=== PATIENT | female | born 2005 | race Caucasian/White ===

== ENCOUNTER 2023-05-01 10:52 | Emergency (ER) | payer OTHER ==
[2023-05-01 11:03] VITALS: RESP 18
[2023-05-01] MEDS ORDERED: SODIUM CHLORIDE 0.9% 1,000 ML IV ONE ×2 (11:22→13:48)
--- NOTE | 2023-05-01 11:26 | ED ---
General Adult HPI - General Chief complaint: Dizziness Stated complaint: dizziness, sob Time Seen by Provider: 05/01/23 11:09 Source: patient, RN notes reviewed Mode of arrival: wheelchair Limitations: no limitations - History of Present Illness Initial comments: 17-year-old female who is approximately 19 weeks with her first presents the emergency department with a chief complaint of dizziness. Patient reports dizziness that started approximately 1 hour and 15 minutes prior to arrival. She reports that she was standing at work just suddenly felt like she was spinning. She also feels like she is near-syncope however denies any episodes of passing out. She reports that this has happened to her before and she felt and her symptoms all resolved. She attempted to eat fall and elevate her leg however she would not receive any symptomatic relief. She not take anything for his symptoms. She does report that she ate earlier today. She is complaining of accompanying symptoms of feeling like she cannot take a deep breath. Denies any fever, chills, palpitations, chest pain, nausea, vomiting, vaginal bleeding, vaginal cramping, low back pain. - Related Data Home Medications Medication Instructions Recorded Confirmed [id number] Acid 1 cap PO DAILY 05/01/23 05/01/23 [-U Capsule (formulary)] Allergies Allergy/AdvReac Type Severity Reaction Status Date / Time No Known Allergies Allergy Verified 05/01/23 13:23 Review of Systems ROS Statement: Those systems with pertinent positive or pertinent negative responses have been documented in the HPI. ROS Other: All systems not noted in ROS Statement are negative. Past Medical History Past Medical History: No Reported History Additional Past Medical History / Comment(s): Chronic ear infections, hypotension, Past Surgical History: Adenoidectomy, Tonsillectomy Past Psychological History: Anxiety, Depression Smoking Status: Never smoker Past Alcohol Use History: None Reported Past Drug Use History: None Reported General Exam - General Exam Comments Initial Comments: General: Alert, in no acute distress Head: atraumatic normocephalic. Eyes PERRL, EOMI intact, mucous membranes moist Respiratory: Lungs clear to auscultation bilaterally Cardiovascular: Heart rate regular rate and rhythm Abdominal: Soft without guarding or rebound, gravid Extremities: Normal inspection with full range of motion and normal capillary refill Neuroogic: alert and oriented 3, CN II-XII intact, able to ambulate with steady gait Skin: warm dry and intact with normal color Limitations: no limitations Course Vital Signs 05/01/23 05/01/23 05/01/23 10:58 12:39 13:00 Temperature 97.9 F 97.2 F L Pulse Rate 72 59 L Pulse Rate [ 95 Sitting Dry Cleaning Manager] Pulse Rate [ 100 Standing Dry Cleaning Manager ] Pulse Rate [ 60 Supine Dry Cleaning Manager] Respiratory 18 18 18 Rate Blood Pressure 126/87 120/78 Blood Pressure 110/68 [Right Arm Sitting] Blood Pressure 114/63 [Right Arm Supine] Blood Pressure 117/89 [Standing] O2 Sat by Pulse 99 98 98 Oximetry 05/01/23 16:20 Temperature 98.3 F Pulse Rate 73 Pulse Rate [ Sitting Dry Cleaning Manager] Pulse Rate [ Standing Dry Cleaning Manager ] Pulse Rate [ Supine Dry Cleaning Manager] Respiratory 18 Rate Blood Pressure 103/63 Blood Pressure [Right Arm Sitting] Blood Pressure [Right Arm Supine] Blood Pressure [Standing] O2 Sat by Pulse 98 Oximetry - Reevaluation(s) Reevaluation #1: 05/01/23 14:04 Patient reevaluated and updated on initial results. Patient still reports feeling dizzy. Additional medications ordered. EKG Findings - EKG Comments: EKG Findings:: I interpreted the following: EKG performed at 11:19 72 bpm normal sinus rhythm MI interval 147, QRS duration 90, QT/QTc 357/381 Medical Decision Making - Medical Decision Making Was pt. sent in by a medical professional or institution (Dr. PA, ROLLER REPAIRER, urgent care, hospital, or jail...) When possible be specific @ -[No] Did you speak to anyone other than the patient for history (EMS, parent, family, police, friend...)? What history was obtained from this source @ -[No] Did you review nursing and triage notes (agree or disagree)? Why? @ -[I reviewed and agree with nursing and triage notes] Were old charts reviewed (outside hosp., previous admission, EMS record, old EKG, old radiological studies, urgent care reports/EKG's, jail records)? Report findings @ -[No old charts were reviewed] Differential Diagnosis (chest pain, altered mental status, abdominal pain women, abdominal pain men, vaginal bleeding, weakness, fever, dyspnea, syncope, headache, dizziness, GI bleed, back pain, seizure, CVA, palpatations, mental health, musculoskeletal)? @ -[not applicable] EKG interpreted by me (3pts min.). @ -[As above] X-rays interpreted by me (1pt min.). @ -Chest x-ray negative for any cardiomegaly intrapleural process CT interpreted by me (1pt min.). @ -[None done] U/S interpreted by me (1pt. min.). @ -[None done] What testing was considered but not performed or refused? (CT, X-rays, U/S, labs)? Why? @ -[None] What meds were considered but not given or refused? Why? @ -[None] Did you discuss the management of the patient with other professionals (professionals i.e. , PA, ROLLER REPAIRER, lab, RT, psych nurse, social service coordinator, webbing seamer pound net, teacher, fire officer, case consultant)? Give summary @ -[No] Was smoking cessation discussed for >3mins.? @ -[No] Was critical care preformed (if so, how long)? @ -[No] Were there social determinants of health that impacted care today? How? (Home lessness, low income, unemployed, alcoholism, drug addiction, transportation, low edu. Level, literacy, decrease access to med. care, shelter, rehab)? @ -[No] Was there de-escalation of care discussed even if they declined (Discuss DNR or withdrawal of care, Hospice)? DNR status @ -[No] What co-morbidities impacted this encounter? (DM, HTN, Smoking, COPD, CAD, Cancer, CVA, ARF, Chemo, Hep., AIDS, mental health diagnosis, sleep apnea, morbid obesity)? @ -[None] Was patient admitted / discharged? Hospital course, mention meds given and route, prescriptions, significant lab abnormalities, going to OR and other pertinent info. @ Discharged. This is a pleasant 17-year-old female who presents to the emergency department with dizziness. Patient had a thorough history and physical exam performed on the emergency department. Physical exam is essentially unremarkable. Heart rate regular rate and rhythm, lungs are to auscultation bilaterally, abdomen soft nontender. patient able to ambulate . Patient was given 2 L IV fluids, Antivert mild symptomatically relief on the emergency department. Recommend close follow-up with PCP in 1-2 days. Patient will be discharged home in stable condition. Return precautions were discussed at length patient verbalized understanding. All questions were addressed. Case discussed with Dr. Swenson who agrees with plan of care Undiagnosed new problem with uncertain prognosis? @ -[No] Drug Therapy requiring intensive monitoring for toxicity (Heparin, Nitro, Insulin, Cardizem)? @ -[No] Were any procedures done? @ -[No] Diagnosis/symptom? @ - Dizziness Acute, or Chronic, or Acute on Chronic? @ -Acute Uncomplicated (without systemic symptoms) or Complicated (systemic symptoms)? @ -Uncomplicated Side effects of treatment? @ -[No] Exacerbation, Progression, or Severe Exacerbation? @ -[No] Poses a threat to life or bodily function? How? (Chest pain, [place], HI, pneumonia, PE, COPD, DKA, ARF, appy, cholecystitis, CVA, Diverticulitis, Homicidal, Suicidal, threat to staff... and all critical care pts) @ -Low likelihood - Lab Data Result diagrams: 05/01/23 11:32 05/01/23 11:32 Lab Results 05/01/23 05/01/23 05/01/23 Range/Units 11:32 11:32 11:41 WBC 8.6 (4.0-11.0) k/uL RBC 4.03 (3.80-5.40) m/uL Hgb 12.1 (11.4-16.0) gm/dL Hct 34.4 (34.0-46.0) % MCV 85.4 (80.0-100.0) fL MCH 30.0 (25.0-35.0) pg MCHC 35.1 (31.0-37.0) g/dL RDW 14.1 (11.5-15.5) % Plt Count 196 (150-450) k/uL MPV 8.1 Neutrophils % 72 % Lymphocytes % 15 % Monocytes % 9 % Eosinophils % 1 % Basophils % 0 % Neutrophils # 6.2 (1.3-7.7) k/uL Lymphocytes # 1.3 (1.0-4.8) k/uL Monocytes # 0.8 (0-1.0) k/uL Eosinophils # 0.1 (0-0.7) k/uL Basophils # 0.0 (0-0.2) k/uL Sodium 135 L (137-145) mmol/L Potassium 3.9 (3.5-5.1) mmol/L Chloride 107 (98-107) mmol/L Carbon Dioxide 22 (22-30) mmol/L Anion Gap 6 mmol/L BUN 8 (7-17) mg/dL Creatinine 0.53 (0.52-1.04) mg/dL Est GFR (CKD-EPI)AfAm >90 (>60 ml/min/1.73 sqM) Est GFR (CKD-EPI)NonAf >90 (>60 ml/min/1.73 sqM) Glucose 74 (74-99) mg/dL Calcium 8.8 (8.4-10.2) mg/dL Total Bilirubin 0.3 (0.2-1.3) mg/dL AST 25 (14-36) U/L ALT 22 (4-34) U/L Alkaline Phosphatase 53 (38-126) U/L Troponin I <0.012 (0.000-0.034) ng/mL Total Protein 6.3 (6.3-8.2) g/dL Albumin 3.6 (3.5-5.0) g/dL Urine Color Urine Appearance (Clear) Urine pH (5.0-8.0) Ur Specific Sagle (1.001-1.035) Urine Protein (Negative) Urine Glucose (UA) (Negative) Urine Ketones (Negative) Urine Blood (Negative) Urine Nitrite (Negative) Urine Bilirubin (Negative) Urine Urobilinogen (<2.0) mg/dL Ur Leukocyte Esterase (Negative) Urine WBC (0-5) /hpf Ur Squamous Epith Cells (0-4) /hpf Urine Bacteria (None) /hpf Urine Mucus (None) /hpf Influenza Type A (PCR) (Not Detectd) Influenza Type B (PCR) (Not Detectd) RSV (PCR) (Not Detectd) SARS-CoV-2 (PCR) (Not Detectd) 05/01/23 05/01/23 Range/Units 12:31 13:40 WBC (4.0-11.0) k/uL RBC (3.80-5.40) m/uL Hgb (11.4-16.0) gm/dL Hct (34.0-46.0) % MCV (80.0-100.0) fL MCH (25.0-35.0) pg MCHC (31.0-37.0) g/dL RDW (11.5-15.5) % Plt Count (150-450) k/uL MPV Neutrophils % % Lymphocytes % % Monocytes % % Eosinophils % % Basophils % % Neutrophils # (1.3-7.7) k/uL Lymphocytes # (1.0-4.8) k/uL Monocytes # (0-1.0) k/uL Eosinophils # (0-0.7) k/uL Basophils # (0-0.2) k/uL Sodium (137-145) mmol/L Potassium (3.5-5.1) mmol/L Chloride (98-107) mmol/L Carbon Dioxide (22-30) mmol/L Anion Gap mmol/L BUN (7-17) mg/dL Creatinine (0.52-1.04) mg/dL Est GFR (CKD-EPI)AfAm (>60 ml/min/1.73 sqM) Est GFR (CKD-EPI)NonAf (>60 ml/min/1.73 sqM) Glucose (74-99) mg/dL Calcium (8.4-10.2) mg/dL Total Bilirubin (0.2-1.3) mg/dL AST (14-36) U/L ALT (4-34) U/L Alkaline Phosphatase (38-126) U/L Troponin I (0.000-0.034) ng/mL Total Protein (6.3-8.2) g/dL Albumin (3.5-5.0) g/dL Urine Color Light Yellow Urine Appearance Clear (Clear) Urine pH 6.0 (5.0-8.0) Ur Specific Sagle 1.006 (1.001-1.035) Urine Protein Negative (Negative) Urine Glucose (UA) Negative (Negative) Urine Ketones Negative (Negative) Urine Blood Negative (Negative) Urine Nitrite Negative (Negative) Urine Bilirubin Negative (Negative) Urine Urobilinogen <2.0 (<2.0) mg/dL Ur Leukocyte Esterase Moderate H (Negative) Urine WBC 1 (0-5) /hpf Ur Squamous Epith Cells 2 (0-4) /hpf Urine Bacteria Rare H (None) /hpf Urine Mucus Rare H (None) /hpf Influenza Type A (PCR) Not Detected (Not Detectd) Influenza Type B (PCR) Not Detected (Not Detectd) RSV (PCR) Not Detected (Not Detectd) SARS-CoV-2 (PCR) Not Detected (Not Detectd) Disposition Clinical Impression: Dizziness Disposition: HOME SELF-CARE Condition: Stable Instructions (If sedation given, give patient instructions): Dizziness (ED) Additional Instructions: Please return to the nearest emergency department if symptoms worsen or persist Is patient prescribed a controlled substance at d/c from ED?: No Referrals: Dmitri Verma DO [Primary Care Provider] - 1-2 days Raad Salinas MD [STAFF PHYSICIAN] - 1-2 days Walter Culp MD [STAFF PHYSICIAN] - 1-2 days Forms: Work/School Release Time of Disposition: 16:06
[2023-05-01 11:45] LABS: Basophils % (A) 0 %; Eosinophils # (A) 0.1 k/uL (0-0.7); Eosinophils % (A) 1 %; HCT 34.4 % (34.0-46.0); HGB 12.1 gm/dL (11.4-16.0); Lymphocytes # (A) 1.3 k/uL (1.0-4.8); Lymphocytes % (A) 15 %; MCHC 35.1 g/dL (31.0-37.0); MCV 85.4 fL (80.0-100.0); Mean Platelet Volume 8.1; Monocytes # (A) 0.8 k/uL (0-1.0); Monocytes % (A) 9 %; Neutrophils # (A) 6.2 k/uL (1.3-7.7); Neutrophils % (A) 72 %; Platelet Count 196 k/uL (150-450); RBC 4.03 m/uL (3.80-5.40); RDW 14.1 % (11.5-15.5); WBC 8.6 k/uL (4.0-11.0)
[2023-05-01 12:04] LABS: ALT 22 U/L (4-34); AST 25 U/L (14-36); African American GFR (CKD) >90 (>60 ml/min/1.73 sqM); Albumin 3.6 g/dL (3.5-5.0); Alkaline Phosphatase 53 U/L (38-126); Anion Gap 6 mmol/L; Blood Urea Nitrogen 8 mg/dL (7-17); Calcium 8.8 mg/dL (8.4-10.2); Carbon Dioxide 22 mmol/L (22-30); Chloride 107 mmol/L (98-107); Glucose 74 mg/dL (74-99); Non-African American GFR(CKD) >90 (>60 ml/min/1.73 sqM); Potassium 3.9 mmol/L (3.5-5.1); Sodium 135 mmol/L (137-145); Total Bilirubin 0.3 mg/dL (0.2-1.3); Total Protein 6.3 g/dL (6.3-8.2)
[2023-05-01 12:48] LABS: Appearance,Urine Clear (Clear); Bacteria,Urine Rare /hpf; Bilirubin,Urine Negative (Negative); Blood,Urine Negative (Negative); Color,Urine Light Yellow; Glucose,Urine (UA) Negative (Negative); Ketones,Urine Negative (Negative); Leukocyte Esterase,Urine Moderate (Negative); Mucus,Urine Rare /hpf; Nitrite,Urine Negative (Negative); Protein,Urine Negative (Negative); Specific Gravity,Urine 1.006 (1.001-1.035); Squamous Epithelial Cell,Urine 2 /hpf (0-4); Urobilinogen,Urine <2.0 mg/dL (<2.0); WBC,Urine 1 /hpf (0-5)
--- NOTE | 2023-05-01 13:10 | US ---
EXAMINATION TYPE: US venous doppler duplex LE BI DATE OF EXAM: 05/01/2023 12:37 PM COMPARISON: NONE CLINICAL INDICATION: Female, 17 years old with history of R/out DVT; Dizziness, SOB, patient 20 weeks SIDE PERFORMED: bilateral TECHNIQUE: The lower extremity deep venous system is examined utilizing real time linear array sonog silvano with graded compression, doppler sonography and color-flow sonography. VESSELS IMAGED: Common Femoral Vein Deep Femoral Vein Greater Saphenous Vein * Femoral Vein Popliteal Vein Small Saphenous Vein * Proximal Calf Veins (* superficial vessels) Right Leg: No evidence of DVT Left Leg: No evidence of DVT IMPRESSION: Grayscale, color doppler, spectral doppler imaging performed of the deep veins of the lo wer extremities. There is normal flow, compressibility, vascular waveforms.
--- NOTE | 2023-05-01 13:13 | XR ---
EXAMINATION TYPE: XR chest 2V DATE OF EXAM: 05/01/2023 COMPARISON: 06/01/2011 TECHNIQUE: PA and lateral views submitted. HISTORY: Shortness of breath FINDINGS: The lungs are clear and there is no pneumothorax, pleural effusion, or focal pneumonia. Heart size normal and no overt failure. Osseous structures demonstrate hypertrophic and degenerative changes of the spine. IMPRESSION: 1. No acute process.
[2023-05-01] MEDS ORDERED: MECLIZINE 12.5 MG TAB PO STA (13:50)
[2023-05-01 16:25] VITALS: BP 103/63; PULSE 73; TEMP 98.3
== END 2023-05-01 16:25 | disposition home or self-care (01) ==
LOC: EC 10:52
DX: O26.892 Other specified pregnancy related conditions, second trimester (principal); O9A.512 Psychological abuse complicating pregnancy, second trimester; R42 Dizziness and giddiness; F41.9 Anxiety disorder, unspecified; F32.A Depression, unspecified; Z20.822 Contact with and (suspected) exposure to COVID-19; Z3A.19 19 weeks gestation of pregnancy
CPT/HCPCS: 36415; 71046; 80053; 81001; 84484; 85025; 87636; 93005; 93970; 96360; 96361; 99285

== ENCOUNTER 2023-08-21 09:42 | Outpatient (CLI) | payer OTHER ==
[2023-08-21 11:07] VITALS: BP 107/61; PULSE 93; RESP 17; TEMP 97.8
== END 2023-08-21 10:47 | disposition home or self-care (01) ==
LOC: FBPOP 09:42
PROVIDERS: ATTEND Obstetrics & Gynecology
DX: Z53.9 Procedure and treatment not carried out, unspecified reason (principal)
CPT/HCPCS: 59025; 99213

== ENCOUNTER 2023-08-24 06:22 | Emergency (ER) | payer OTHER ==
--- NOTE | 2023-08-24 06:31 | ED ---
General Adult HPI - General Chief complaint: Chest Pain Stated complaint: Chest pain Time Seen by Provider: 08/24/23 06:29 Source: patient, RN notes reviewed Mode of arrival: wheelchair Limitations: no limitations - History of Present Illness Initial comments: 18 year-old female presents approximately 36 weeks presents the emergency department with a chief complaint of acute onset chest pain. She reports chest pain that is in her center of her chest/epigastric area that awoke her from sleep approximately 1 hour ago. She is complaining of accompanying shortness of breath. Denies fever, chills,, congestion, palpitations, nausea, vomiting, abdominal pain. Denies any vaginal bleeding, vaginal cramping, low back pain. She reports movement. - Related Data Home Medications Medication Instructions Recorded Confirmed Lte-Jfzm-Ayqpu Acid 1 cap PO DAILY 05/01/23 08/21/23 [-U Capsule (formulary)] Acetaminophen Tab [Tylenol] 2 tablet PO PRN 08/21/23 diphenhydrAMINE HCL [Benadryl 25 mg PO PRN 08/21/23 Allergy] Previous Rx's Medication Instructions Recorded Cephalexin [Keflex] 500 mg PO BID #14 cap 08/24/23 Famotidine [Pepcid] 20 mg PO BID #28 tablet 08/24/23 Allergies Allergy/AdvReac Type Severity Reaction Status Date / Time pseudoephedrine Allergy Rapid Verified 08/24/23 06:25 Heart Rate Review of Systems ROS Statement: Those systems with pertinent positive or pertinent negative responses have been documented in the HPI. ROS Other: All systems not noted in ROS Statement are negative. Past Medical History Past Medical History: No Reported History Additional Past Medical History / Comment(s): Chronic ear infections, hypotension, History of Any Multi-Drug Resistant Organisms: None Reported Past Surgical History: Adenoidectomy, Tonsillectomy Past Psychological History: Anxiety, Depression Smoking Status: Never smoker Past Alcohol Use History: None Reported Past Drug Use History: None Reported General Exam - General Exam Comments Initial Comments: Visual Physical Exam Vital signs reviewed General: Well-appearing, nontoxic, no acute distress. Head: Normocephalic, atraumatic Eyes: PERRLA, EOMI ENT: Airway patent Chest: Nonlabored breathing Skin: No visual rash, normal skin tone Neuro: Alert and oriented 3 Musculoskeletal: No gross abnormalities Limitations: no limitations Course Vital Signs 08/24/23 08/24/23 08/24/23 06:25 07:28 07:30 Temperature 98.2 F 98.1 F Pulse Rate 105 H 80 Pulse Rate [ 85 Rn Physician Office ] Respiratory 18 18 18 Rate Blood Pressure 123/82 106/73 O2 Sat by Pulse 96 98 Oximetry 08/24/23 08/24/23 08/24/23 08:00 09:00 09:47 Temperature Pulse Rate 93 87 65 Pulse Rate [ Rn Physician Office ] Respiratory 18 18 18 Rate Blood Pressure 112/77 103/69 110/70 O2 Sat by Pulse 98 Oximetry 08/24/23 08/24/23 10:47 11:36 Temperature Pulse Rate 71 83 Pulse Rate [ Rn Physician Office ] Respiratory 18 18 Rate Blood Pressure 106/69 123/69 O2 Sat by Pulse 98 Oximetry - Reevaluation(s) Reevaluation #1: 08/24/23 08:19 Patient's heart tones 140s Reevaluation #2: 08/24/23 08:29 He shouldn't still complaining of chest pressure. Agreeable with the plan for CAT scan. Risks and benefits were discussed at length. Patient verbalized understanding all questions were addressed. Patient agreeable to getting a CAT scan to rule out PE. Reevaluation #3: 08/24/23 10:[address] results. Patient still complaining of chest tightness. Tylenol ordered. EKG Findings - EKG Comments: EKG Findings:: I interpreted the following: EKG performed at 06:35. Rate 82 bpm normal sinus rhythm. [place] interval 131, QRS duration 85, QT/QTc 355/374 Medical Decision Making - Medical Decision Making Was pt. sent in by a medical professional or institution (, PA, BINDER CASER, urgent care, hospital, or alf...) When possible be specific @ -[No] Did you speak to anyone other than the patient for history (EMS, parent, family, police, friend...)? What history was obtained from this source @ -[No] Did you review nursing and triage notes (agree or disagree)? Why? @ -[I reviewed and agree with nursing and triage notes] Were old charts reviewed (outside hosp., previous admission, EMS record, old EKG, old radiological studies, urgent care reports/EKG's, alf records)? Report findings @ -[No old charts were reviewed] Differential Diagnosis (chest pain, altered mental status, abdominal pain women, abdominal pain men, vaginal bleeding, weakness, fever, dyspnea, syncope, headache, dizziness, GI bleed, back pain, seizure, CVA, palpatations, mental health, musculoskeletal)? @ -[not applicable] EKG interpreted by me (3pts min.). @ -[As above] X-rays interpreted by me (1pt min.). @ yes CT interpreted by me (1pt min.). @ -Yes U/S interpreted by me (1pt. min.). @ -[None done] What testing was considered but not performed or refused? (CT, X-rays, U/S, labs)? Why? @ -[None] What meds were considered but not given or refused? Why? @ -[None] Did you discuss the management of the patient with other professionals (pr ofessionals i.e. , PA, BINDER CASER, lab, RT, psych nurse, social security specialist, dining room host, teacher, credit review officer, rehabilitation case coordinator)? Give summary @ -[No] Was smoking cessation discussed for >3mins.? @ -[No] Was critical care preformed (if so, how long)? @ -[No] Were there social determinants of health that impacted care today? How? (Homelessness, low income, unemployed, alcoholism, drug addiction, tra nsportation, low edu. Level, literacy, decrease access to med. care, usp, rehab)? @ -[No] Was there de-escalation of care discussed even if they declined (Discuss DNR or withdrawal of care, Hospice)? DNR status @ -[No] What co-morbidities impacted this encounter? (DM, HTN, Smoking, COPD, CAD, Cancer, CVA, ARF, Chemo, Hep., AIDS, mental health diagnosis, sleep apnea, morbid obesity)? @ -[None] Was patient admitted / discharged? Hospital course, mention meds given and route, prescriptions, significant lab abnormalities, going to OR and other pertinent info. @ -Discharged. This is a 18-year-old female who presents the emergency department with chest pain. Patient had a history and physical exam performed. Abdomen is gravid. Heart rate regular rate and rhythm, lungs clear to auscultation. Patient had laboratory studies including 2 serial negative troponins. Patient's dimer onto the elevated at 1.6. CTA ordered. Risks and benefits were di scussed at length. Patient verbalized understanding. Chest CT is negative for any evidence of PE. She'll be discharged home in stable condition. Return precautions discussed at length. Case discussed with Dr. Parker [facility] who agrees with plan of care. Undiagnosed new problem with uncertain prognosis? @ -[No] Drug Therapy requiring intensive monitoring for toxicity (Heparin, Nitro, Insulin, Cardizem)? @ -[No] Were any procedures done? @ -[No] Diagnosis/symptom? @ -Chest Pain Acute, or Chronic, or Acute on Chronic? @ -Acute Uncomplicated (without systemic symptoms) or Complicated (systemic symptoms)? @ -Uncomplicated Side effects of treatment? @ -[No] Exacerbation, Progression, or Severe Exacerbation? @ -[No] Poses a threat to life or bodily function? How? (Chest pain, [place], NH, pneumonia, PE, COPD, DKA, ARF, appy, cholecystitis, CVA, Diverticulitis, Homicidal, Suicidal, threat to staff... and all critical care pts) @ -Low likelihood - Lab Data Result diagrams: 08/24/23 06:35 08/24/23 06:35 Lab Results 08/24/23 08/24/23 08/24/23 Range/Units 06:35 06:35 06:35 WBC 10.4 (4.0-11.0) k/uL RBC 4.01 (3.80-5.40) m/uL Hgb 9.5 L (11.4-16.0) gm/dL Hct 29.4 L (34.0-46.0) % MCV 73.4 L (80.0-100.0) fL MCH 23.8 L (25.0-35.0) pg MCHC 32.4 (31.0-37.0) g/dL RDW 14.9 (11.5-15.5) % Plt Count 211 (150-450) k/uL MPV 8.8 Neutrophils % (Manual) 83 % Lymphocytes % (Manual) 13 % Monocytes % (Manual) 3 % Eosinophils % (Manual) 1 % Neutrophils # (Manual) 8.63 H (1.3-7.7) k/uL Lymphocytes # (Manual) 1.35 (1.0-4.8) k/uL Monocytes # (Manual) 0.31 (0-1.0) k/uL Eosinophils # (Manual) 0.10 (0-0.7) k/uL Nucleated RBCs 0 (0-0) /100 WBC Manual Slide Review Performed Large Platelets Present Polychromasia Present Hypochromasia Marked Poikilocytosis Moderate Microcytosis Slight PT 9.5 L (10.0-12.5) sec INR 0.8 (<1.2) APTT 22.1 (22.0-30.0) sec D-Dimer (<0.60) mg/L FEU Sodium 134 L (137-145) mmol/L Potassium 4.1 (3.5-5.1) mmol/L Chloride 105 (98-107) mmol/L Carbon Dioxide 18 L (22-30) mmol/L Anion Gap 11 mmol/L BUN 7 (7-17) mg/dL Creatinine 0.50 L (0.52-1.04) mg/dL Est GFR (CKD-EPI)AfAm >90 (>60 ml/min/1.73 sqM) Est GFR (CKD-EPI)NonAf >90 (>60 ml/min/1.73 sqM) Glucose 90 (74-99) mg/dL Calcium 9.2 (8.4-10.2) mg/dL Total Bilirubin 0.4 (0.2-1.3) mg/dL AST 28 (14-36) U/L ALT 24 (4-34) U/L Alkaline Phosphatase 130 H (38-126) U/L Troponin I (0.000-0.034) ng/mL Total Protein 6.2 L (6.3-8.2) g/dL Albumin 3.4 L (3.5-5.0) g/dL Urine Color Urine Appearance (Clear) Urine pH (5.0-8.0) Ur Specific [place] (1.001-1.035) Urine Protein (Negative) Urine Glucose (UA) (Negative) Urine Ketones (Negative) Urine Blood (Negative) Urine Nitrite (Negative) Urine Bilirubin (Negative) Urine Urobilinogen (<2.0) mg/dL Ur Leukocyte Esterase (Negative) Urine RBC (0-5) /hpf Urine WBC (0-5) /hpf Ur Squamous Epith Cells (0-4) /hpf Urine Bacteria (None) /hpf Urine Mucus (None) /hpf Influenza Type A (PCR) (Not Detectd) Influenza Type B (PCR) (Not Detectd) RSV (PCR) (Not Detectd) SARS-CoV-2 (PCR) (Not Detectd) 08/24/23 08/24/23 08/24/23 Range/Units 06:35 06:35 08:14 WBC (4.0-11.0) k/uL RBC (3.80-5.40) m/uL Hgb (11.4-16.0) gm/dL Hct (34.0-46.0) % MCV (80.0-100.0) fL MCH (25.0-35.0) pg MCHC (31.0-37.0) g/dL RDW (11.5-15.5) % Plt Count (150-450) k/uL MPV Neutrophils % (Manual) % Lymphocytes % (Manual) % Monocytes % (Manual) % Eosinophils % (Manual) % Neutrophils # (Manual) (1.3-7.7) k/uL Lymphocytes # (Manual) (1.0-4.8) k/uL Monocytes # (Manual) (0-1.0) k/uL Eosinophils # (Manual) (0-0.7) k/uL Nucleated RBCs (0-0) /100 WBC Manual Slide Review Large Platelets Polychromasia Hypochromasia Poikilocytosis Microcytosis PT (10.0-12.5) sec INR (<1.2) APTT (22.0-30.0) sec D-Dimer 1.84 H (<0.60) mg/L FEU Sodium (137-145) mmol/L Potassium (3.5-5.1) mmol/L Chloride (98-107) mmol/L Carbon Dioxide (22-30) mmol/L Anion Gap mmol/L BUN (7-17) mg/dL Creatinine (0.52-1.04) mg/dL Est GFR (CKD-EPI)AfAm (>60 ml/min/1.73 sqM) Est GFR (CKD-EPI)NonAf (>60 ml/min/1.73 sqM) Glucose (74-99) mg/dL Calcium (8.4-10.2) mg/dL Total Bilirubin (0.2-1.3) mg/dL AST (14-36) U/L ALT (4-34) U/L Alkaline Phosphatase (38-126) U/L Troponin I <0.012 (0.000-0.034) ng/mL Total Protein (6.3-8.2) g/dL Albumin (3.5-5.0) g/dL Urine Color Yellow Urine Appearance Turbid H (Clear) Urine pH 7.0 (5.0-8.0) Ur Specific [place] 1.022 (1.001-1.035) Urine Protein 1+ H (Negative) Urine Glucose (UA) Negative (Negative) Urine Ketones Negative (Negative) Urine Blood Small H (Negative) Urine Nitrite Negative (Negative) Urine Bilirubin Negative (Negative) Urine Urobilinogen <2.0 (<2.0) mg/dL Ur Leukocyte Esterase Large H (Negative) Urine RBC 17 H (0-5) /hpf Urine WBC 102 H (0-5) /hpf Ur Squamous Epith Cells 19 H (0-4) /hpf Urine Bacteria Few H (None) /hpf Urine Mucus Few H (None) /hpf Influenza Type A (PCR) (Not Detectd) Influenza Type B (PCR) (Not Detectd) RSV (PCR) (Not Detectd) SARS-CoV-2 (PCR) (Not Detectd) 08/24/23 08/24/23 Range/Units 08:14 09:45 WBC (4.0-11.0) k/uL RBC (3.80-5.40) m/uL Hgb (11.4-16.0) gm/dL Hct (34.0-46.0) % MCV (80.0-100.0) fL MCH (25.0-35.0) pg MCHC (31.0-37.0) g/dL RDW (11.5-15.5) % Plt Count (150-450) k/uL MPV Neutrophils % (Manual) % Lymphocytes % (Manual) % Monocytes % (Manual) % Eosinophils % (Manual) % Neutrophils # (Manual) (1.3-7.7) k/uL Lymphocytes # (Manual) (1.0-4.8) k/uL Monocytes # (Manual) (0-1.0) k/uL Eosinophils # (Manual) (0-0.7) k/uL Nucleated RBCs (0-0) /100 WBC Manual Slide Review Large Platelets Polychromasia Hypochromasia Poikilocytosis Microcytosis PT (10.0-12.5) sec INR (<1.2) APTT (22.0-30.0) sec D-Dimer (<0.60) mg/L FEU Sodium (137-145) mmol/L Potassium (3.5-5.1) mmol/L Chloride (98-107) mmol/L Carbon Dioxide (22-30) mmol/L Anion Gap mmol/L BUN (7-17) mg/dL Creatinine (0.52-1.04) mg/dL Est GFR (CKD-EPI)AfAm (>60 ml/min/1.73 sqM) Est GFR (CKD-EPI)NonAf (>60 ml/min/1.73 sqM) Glucose (74-99) mg/dL Calcium (8.4-10.2) mg/dL Total Bilirubin (0.2-1.3) mg/dL AST (14-36) U/L ALT (4-34) U/L Alkaline Phosphatase (38-126) U/L Troponin I <0.012 (0.000-0.034) ng/mL Total Protein (6.3-8.2) g/dL Albumin (3.5-5.0) g/dL Urine Color Urine Appearance (Clear) Urine pH (5.0-8.0) Ur Specific [place] (1.001-1.035) Urine Protein (Negative) Urine Glucose (UA) (Negative) Urine Ketones (Negative) Urine Blood (Negative) Urine Nitrite (Negative) Urine Bilirubin (Negative) Urine Urobilinogen (<2.0) mg/dL Ur Leukocyte Esterase (Negative) Urine RBC (0-5) /hpf Urine WBC (0-5) /hpf Ur Squamous Epith Cells (0-4) /hpf Urine Bacteria (None) /hpf Urine Mucus (None) /hpf Influenza Type A (PCR) Not Detected (Not Detectd) Influenza Type B (PCR) Not Detected (Not Detectd) RSV (PCR) Not Detected (Not Detectd) SARS-CoV-2 (PCR) Not Detected (Not Detectd) Disposition Clinical Impression: Chest pain Disposition: HOME SELF-CARE Condition: Stable Instructions (If sedation given, give patient instructions): Chest Pain (ED) Additional Instructions: Please monitor symptoms closely Please return to the nearest emergency department if worsening chest pain or shortness of breath develop Prescriptions: Cephalexin [Keflex] 500 mg PO BID #14 cap Famotidine [Pepcid] 20 mg PO BID #28 tablet Is patient prescribed a controlled substance at d/c from ED?: No Referrals: Israel Alvarez MD [Primary Care Provider] - 1-2 days Time of Disposition: 10:45
[2023-08-24] MEDS ORDERED: FAMOTIDINE 20 MG/2 ML VIAL IV STA (06:32)
[2023-08-24] MEDS ORDERED: MAG HYDROX/AL HYDROX/SIMETH 30 ML, HYOSCYAMINE ELIXIR 10 ML, LIDOCAINE VISCOUS 2% 10 ML PO STA ×3 (06:32)
[2023-08-24] MEDS ORDERED: SODIUM CHLORIDE 0.9% 1,000 ML IV ONE (06:32)
[2023-08-24 06:35] VITALS: RESP 18
[2023-08-24 07:11] LABS: INR 0.8 (<1.2); Partial Thromboplastin Time 22.1 sec (22.0-30.0); Prothrombin Time 9.5 sec (10.0-12.5)
[2023-08-24 07:17] LABS: ALT 24 U/L (4-34); AST 28 U/L (14-36); African American GFR (CKD) >90 (>60 ml/min/1.73 sqM); Albumin 3.4 g/dL (3.5-5.0); Alkaline Phosphatase 130 U/L (38-126); Anion Gap 11 mmol/L; Blood Urea Nitrogen 7 mg/dL (7-17); Calcium 9.2 mg/dL (8.4-10.2); Carbon Dioxide 18 mmol/L (22-30); Chloride 105 mmol/L (98-107); Glucose 90 mg/dL (74-99); Non-African American GFR(CKD) >90 (>60 ml/min/1.73 sqM); Potassium 4.1 mmol/L (3.5-5.1); Sodium 134 mmol/L (137-145); Total Bilirubin 0.4 mg/dL (0.2-1.3); Total Protein 6.2 g/dL (6.3-8.2)
[2023-08-24 07:29] LABS: HCT 29.4 % (34.0-46.0); HGB 9.5 gm/dL (11.4-16.0); Hypochromasia Marked; MCH 23.8 pg (25.0-35.0); MCHC 32.4 g/dL (31.0-37.0); MCV 73.4 fL (80.0-100.0); Mean Platelet Volume 8.8; Microcytosis Slight; Platelet Count 211 k/uL (150-450); Poikilocytosis Moderate; RBC 4.01 m/uL (3.80-5.40); RDW 14.9 % (11.5-15.5); WBC 10.4 k/uL (4.0-11.0)
[2023-08-24 08:10] LABS: Lymphocytes # (M) 1.35 k/uL (1.0-4.8); Monocytes # (M) 0.31 k/uL (0-1.0); Neutrophils # (M) 8.63 k/uL (1.3-7.7); Neutrophils % (M) 83 %; Nucleated Red Blood Cells 0 /100 WBC (0-0); Total Cells Counted 100
[2023-08-24 08:11] LABS: Polychromasia Present
[2023-08-24 08:13] LABS: Large Platelets Present
[2023-08-24 08:40] VITALS: TEMP 98.1
[2023-08-24 09:04] LABS: Appearance,Urine Turbid (Clear); Bacteria,Urine Few /hpf; Bilirubin,Urine Negative (Negative); Blood,Urine Small (Negative); Color,Urine Yellow; Glucose,Urine (UA) Negative (Negative); Ketones,Urine Negative (Negative); Leukocyte Esterase,Urine Large (Negative); Mucus,Urine Few /hpf; Nitrite,Urine Negative (Negative); Protein,Urine 1+ (Negative); RBC,Urine 17 /hpf (0-5); Specific Gravity,Urine 1.022 (1.001-1.035); Squamous Epithelial Cell,Urine 19 /hpf (0-4); Urobilinogen,Urine <2.0 mg/dL (<2.0); WBC,Urine 102 /hpf (0-5)
--- NOTE | 2023-08-24 09:14 | CT ---
EXAMINATION TYPE: CT chest angio for PE DATE OF EXAM: 08/24/2023 COMPARISON: None HISTORY: + dimer, chest pain CT DLP: 423.4 mGycm CONTRAST: CT chest with contrast and 3D reconstruction with MIP imaging is performed without and with IV Contra st, patient injected with 100 mL of . Contrast-enhanced CT of the chest was performed through the course of the pulmonary arteries with power g and mediastinal window settings submitted. 3D reconstruction with MIP imaging was also performed. PULMONARY ARTERIES: The pulmonary arteries and their major tributaries are patent. I do not see benigno dence for sizable filling defect to suggest pulmonary embolic process. LUNGS: The lungs are clear and free of infiltrate. No evidence for atelectasis. No pulmonary nodule or mass is detected. No pleural effusion. MEDIASTINUM: Thoracic aorta is of normal caliber,however, evaluation is limited given timing of the contrast bolus. If there is concern for thoracic aortic pathology consider ADILIA. Correlate clinicall y . The heart is not enlarged. No evidence for mediastinal mass. No mediastinal lymph nodes greater than 1cm. HILAR STRUCTURES: No evidence for mass. No hilar lymph nodes greater than 1 cm. UPPER ABDOMEN: Partial visualization of the patient's known . IMPRESSION: 1. No evidence for Pulmonary embolism at this time.
[2023-08-24] MEDS ORDERED: ACETAMINOPHEN TAB 325 MG TAB PO STA (10:06)
[2023-08-24] MEDS ORDERED: cefTRIAXone IN SWFI 1,000 MG/10 ML SYRINGE IVP STA (10:06)
[2023-08-24] MEDS ORDERED: CEPHALEXIN 500MG STARTER PACK 4 CAP BTL PO STA (10:44)
[2023-08-24 11:55] VITALS: BP 123/69; PULSE 83
== END 2023-08-24 11:37 | disposition home or self-care (01) ==
LOC: EC 06:22
DX: O26.893 Other specified pregnancy related conditions, third trimester (principal); R07.9 Chest pain, unspecified; Z88.1 Allergy status to other antibiotic agents; Z86.59 Personal history of other mental and behavioral disorders; Z20.822 Contact with and (suspected) exposure to COVID-19; Z3A.36 36 weeks gestation of pregnancy
CPT/HCPCS: 96375 ×2; 96361 ×2; 96374; 99285; 36415; 93005; 85379; 80053; 84484; 85025; 85610; 85730; 81001; 87636; 71275; J0696; J3490; Q9967

== ENCOUNTER 2023-09-18 05:45 | Inpatient (IN) | payer OTHER ==
--- NOTE | 2023-09-17 15:20 | P.HPOB ---
History of Present Illness H&P Date: 09/17/23 Chief Complaint: Induction of labor This is a 18 y.o. female, gravida1, para 0, with an estimated date of confinement of 09/17/2023, estimated gestational age of 40-1/7 weeks, who presents for induction of labor. She is complaining of frequent contractions, pressure. Her has been complicated by frequent dizziness and shortness of breath due to her POTS. labs: GC/Chlamydia/Trich-neg Hemoglobin-12.1 Blood type-B+ Antibody screen-neg Rubella-immune Toxoplasma-neg RPR-NR HIV-NR Hepatitis C-neg Random glucose-80 Hepatitis B surface antigen-neg 1 hr. 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 Review of Systems Constitutional: Denies chills, Denies fever Eyes: denies blurred vision, denies pain Ears, nose, mouth and throat: Denies headache, Denies sore throat Cardiovascular: Reports lightheadedness, Reports rapid heart beat, Reports shortness of breath, Denies chest pain Respiratory: Denies cough Gastrointestinal: Reports abdominal pain (irregular contractions) Genitourinary: Reports pelvic pain, Reports Musculoskeletal: Reports low back pain Integumentary: Denies pruritus, Denies rash Neurological: Reports migraines, Denies numbness, Denies weakness Psychiatric: Reports anxiety, Reports depression Past Medical History Additional Past Medical History / Comment(s): Chronic ear infections, hypotension, POTS History of Any Multi-Drug Resistant Organisms: None Reported Past Surgical History: Adenoidectomy, Tonsillectomy Past Anesthesia/Blood Transfusion Reactions: No Reported Reaction Past Psychological History: Anxiety, Depression Smoking Status: Never smoker Past Alcohol Use History: None Reported Past Drug Use History: None Reported - Past Family History Mother Family Medical History: Hypertension Medications and Allergies Home Medications Medication Instructions Recorded Confirmed Type Cog-Dgxq-Kkdmp Acid 1 cap PO DAILY 05/01/23 08/21/23 History [-U Capsule (formulary)] Acetaminophen Tab [Tylenol] 2 tablet PO PRN 08/21/23 History diphenhydrAMINE HCL [Benadryl 25 mg PO PRN 08/21/23 History Allergy] Famotidine [Pepcid] 20 mg PO BID #28 tablet 08/24/23 Rx Allergies Allergy/AdvReac Type Severity Reaction Status Date / Time pseudoephedrine Allergy Rapid Verified 08/24/23 06:25 Heart Rate Exam Osteopathic Statement: *. No significant issues noted on an osteopathic structural exam other than those noted in the History and Physical/Consult. HEENT: within normal limits Heart: regular rate and rhythm Lungs: clear to auscultation bilaterally Abdomen: , non-tender Cervix: 1 cm/80%/-2 heart tones: 140's by doppler Extremities: neg. Arabella's Assessment and Plan (1) 40 weeks gestation of Status: Acute Code(s): Z3A.40 - 40 WEEKS GESTATION OF SNOMED Code(s): 35776344 Plan: Proceed with oxytocin induction of labor. Expectant management. Epidural anesthesia if desired.
[2023-09-18] MEDS ORDERED: METHYLERGONOVINE 0.2 MG/ML 1 ML AMP IM PRN (06:13)
[2023-09-18] MEDS ORDERED: OXYTOCIN 10 UNIT/ML 1 ML VIAL IM PRN (06:13)
[2023-09-18] MEDS ORDERED: TRANEXAMIC 1,000 MG/100ML-NACL 1,000 MG in EMPTY BAG 1 BAG IV PRN (06:13)
[2023-09-18] MEDS ORDERED: LIDOCAINE 0.5% (PF) 5 MG/ML (50 ML SDV) SQ PRN (06:13)
[2023-09-18] MEDS ORDERED: miSOPROStoL 200 MCG TAB PO PRN (06:13)
[2023-09-18] MEDS ORDERED: CARBOPROST TROMETHAMINE 250 MCG/ML 1 ML AMP IM PRN (06:13)
[2023-09-18] MEDS ORDERED: LIDOCAINE 1% (10MG/ML) FOR IV START INTRADERMA PRN (06:13)
[2023-09-18] MEDS ORDERED: TERBUTALINE 1 MG/ML VIAL SQ PRN (06:13)
[2023-09-18] MEDS ORDERED: OXYTOCIN 30 UNITS/500 ML NS 30 UNIT in SALINE 1 500ML.BAG IV SCH (06:13)
[2023-09-18] MEDS: LACTATED RINGERS 1,000 ML IV SCH ×2 (06:29→10:46)
[2023-09-18 06:31] LABS: Anisocytosis Slight; HCT 28.7 % (34.0-46.0); HGB 9.3 gm/dL (11.4-16.0); Hypochromasia Marked; MCH 22.6 pg (25.0-35.0); MCHC 32.3 g/dL (31.0-37.0); MCV 70.1 fL (80.0-100.0); Mean Platelet Volume 7.4; Microcytosis Marked; Platelet Count 238 k/uL (150-450); Poikilocytosis Slight; RDW 16.5 % (11.5-15.5); WBC 9.2 k/uL (4.0-11.0)
[2023-09-18 08:57] LABS: Eosinophils # (M) 0.09 k/uL (0-0.7); Lymphocytes # (M) 1.66 k/uL (1.0-4.8); Monocytes # (M) 0.09 k/uL (0-1.0); Neutrophils # (M) 7.36 k/uL (1.3-7.7); Neutrophils % (M) 80 %; Nucleated Red Blood Cells 0 /100 WBC (0-0); Total Cells Counted 100
[2023-09-18] MEDS ORDERED: NALBUPHINE 10 MG/ML (10 ML MDV) IV PRN (09:42)
[2023-09-18] MEDS ORDERED: SODIUM CHLORIDE 0.9% 250 ML BAG ONE (11:10)
[2023-09-18] MEDS ORDERED: fentaNYL (PF) 50 MCG/ML 5 ML AMP ONE (11:10)
[2023-09-18] MEDS ORDERED: ROPIVACAINE 5 MG/ML 30 ML VIAL ONE (11:10)
--- NOTE | 2023-09-18 16:55 | P.PROBDLV ---
Vaginal Delivery Note - . Vaginal Delivery Note: The patient progressed to complete dilation after oxytocin induction of labor and artificial rupture membranes with meconium fluid noted. She did receive epidural anesthesia. Once reaching complete, she began pushing. Infant's head came to a crown. With one further push, the infant's head delivered across the perineum in a left occiput anterior lie followed by the anterior shoulder with one further push. Nose and mouth were bulb suctioned. With one remaining push the remainder the easily delivered and was placed on mother's abdomen. Nose and mouth were again bulb suctioned due to meconium. Cord was clamped and cut and was taken to warmer for evaluation by nursing staff. A viable female was noted with scores of 8 at 1 minute and 9 at 5 minutes and weight of 8 pounds 1.1 ounces. Her placenta delivered shortly thereafter, intact, with a three-vessel cord. A few clots were then expressed and uterus firmed up after oxytocin was given and uterine massage was carried out. Inspection of the perineum revealed a second-degree perineal laceration. This area was anesthetized with 1% lidocaine and then sutured with 3-0 and 2-0 Vicryl suture in the usual multilayer fashion. Estimated blood loss is approximately 200 mL's. Both mother and are in stable condition.
[2023-09-18] MEDS ORDERED: BENZOCAINE/MENTHOL SPRAY 1 GM/SPRAY AEROSOL TOPICAL PRN (17:42)
[2023-09-18] MEDS ORDERED: diphenhydrAMINE 25 MG CAP PO PRN (17:42)
[2023-09-18] MEDS ORDERED: diphenhydrAMINE 50 MG CAP PO PRN (17:42)
[2023-09-18] MEDS ORDERED: SIMETHICONE 80 MG CHEWABLE PO PRN (17:42)
[2023-09-18] MEDS ORDERED: ZOLPIDEM 5 MG TAB PO PRN (17:42)
[2023-09-18] MEDS ORDERED: diphenhydrAMINE 50 MG/ML 1 ML VIAL IVP PRN ×2 (17:42)
[2023-09-18] MEDS ORDERED: HYDROCORTISONE 2.5% RECTAL CREAM 30 GM TUBE RECTAL PRN (17:42)
[2023-09-18] MEDS ORDERED: LANOLIN CREAM 5 GM TUBE TOPICAL PRN (17:42)
[2023-09-18] MEDS: IBUPROFEN 600 MG TAB PO PRN (18:34)
[2023-09-18] MEDS: SENNOSIDES-DOCUSATE SODIUM 1 EACH TAB PO SCH (18:35)
[2023-09-18 22:00] LABS: Glucose,Whole Blood 134 mg/dL (70-110)
[2023-09-18 23:36] LABS: Anisocytosis Slight; HCT 23.8 % (34.0-46.0); HGB 7.3 gm/dL (11.4-16.0); Hypochromasia Marked; MCH 21.5 pg (25.0-35.0); MCHC 30.6 g/dL (31.0-37.0); MCV 70.4 fL (80.0-100.0); Mean Platelet Volume 9.1; Microcytosis Marked; Platelet Count 183 k/uL (150-450); Poikilocytosis Slight; RBC 3.38 m/uL (3.80-5.40); RDW 16.6 % (11.5-15.5); WBC 14.2 k/uL (4.0-11.0)
[2023-09-19 00:31] LABS: Lymphocytes # (M) 2.13 k/uL (1.0-4.8); Monocytes # (M) 0.43 k/uL (0-1.0); Neutrophils # (M) 11.64 k/uL (1.3-7.7); Neutrophils % (M) 82 %; Nucleated Red Blood Cells 0 /100 WBC (0-0); Total Cells Counted 100
[2023-09-19 00:32] LABS: Anisocytosis (M) Present; Hypochromasia (M) Present; Polychromasia Present
[2023-09-19] MEDS: IBUPROFEN 600 MG TAB PO PRN ×3 (05:52→20:28)
[2023-09-19 07:38] LABS: Anisocytosis Slight; HCT 22.7 % (34.0-46.0); HGB 7.1 gm/dL (11.4-16.0); Hypochromasia Marked; MCHC 31.4 g/dL (31.0-37.0); MCV 70.1 fL (80.0-100.0); Mean Platelet Volume 8.6; Microcytosis Marked; Platelet Count 165 k/uL (150-450); Poikilocytosis Slight; RBC 3.24 m/uL (3.80-5.40); RDW 16.9 % (11.5-15.5)
[2023-09-19] MEDS: SENNOSIDES-DOCUSATE SODIUM 1 EACH TAB PO SCH ×2 (07:53→20:29)
--- NOTE | 2023-09-19 08:37 | P.PNOBGVD ---
Subjective - Subjective Principal diagnosis: Status post vaginal delivery day #1 Interval history: Last night patient did get some nausea and lightheadedness along with shortness of breath when she got up to the bathroom. She also felt dizzy. She had a stat CBC ordered that showed hemoglobin at 7.3 down from 9.3 prior to delivery. Her bleeding was minimal at that time. She declined blood last night but then this morning started complaining of feeling her tongue heavy and numbness on her entire left side of her body. She also complained of some headache and some blurring vision this morning at the same time. She was counseled regarding blood transfusion risks and benefits and does wish to proceed with 1 unit of blood this morning. She is also having trouble with breast-feeding. Patient reports: Reports voiding normally, Reports dizzy ambulation, Reports pain well controlled (Better this morning.), Reports nauseated : doing well Objective - Latest Vital Signs Latest vital signs: Vital Signs Temp Pulse Resp BP Pulse Ox 09/19/23 08:00 98.0 F 76 15 101/67 09/19/23 04:00 98.7 F 65 16 107/65 09/18/23 23:40 98.3 F 82 16 108/54 96 09/18/23 20:00 98.3 F 83 16 119/63 98 09/18/23 18:44 83 16 110/65 09/18/23 18:15 79 16 124/58 09/18/23 17:45 73 16 125/65 09/18/23 17:30 76 16 123/64 09/18/23 17:15 80 16 116/64 09/18/23 17:00 90 16 129/81 09/18/23 16:45 97.2 F L 81 16 111/58 Intake and Output 09/18/23 09/19/23 09/19/23 22:59 06:59 14:59 Other: # Voids 1 1 - Exam Extremities: Present: normal, other (Normal deep tendon reflexes and absent Babinski reflux. Normal strength bilaterally and normal sensation to touch.). Absent: tenderness Abdomen: Present: normal appearance, soft. Absent: distention, tenderness Uterus: Present: normal, firm. Absent: tenderness - Labs Labs: Abnormal Lab Results - Last 24 Hours (Table) 09/18/23 09/18/23 09/19/23 Range/Units 21:58 23:10 06:35 WBC 14.2 H 12.0 H (4.0-11.0) k/uL RBC 3.38 L 3.24 L (3.80-5.40) m/uL Hgb 7.3 L D 7.1 L (11.4-16.0) gm/dL Hct 23.8 L 22.7 L (34.0-46.0) % MCV 70.4 L 70.1 L (80.0-100.0) fL MCH 21.5 L 22.0 L (25.0-35.0) pg MCHC 30.6 L (31.0-37.0) g/dL RDW 16.6 H 16.9 H (11.5-15.5) % Neutrophils # (Manual) 11.64 H (1.3-7.7) k/uL POC Glucose (mg/dL) 134 H (70-110) mg/dL Assessment and Plan Assessment: Status post vaginal delivery day #1 Chronic anemia with acute blood loss anemia-symptomatic (1) 40 weeks gestation of Current Visit: No Status: Acute Code(s): Z3A.40 - 40 WEEKS GESTATION OF SNOMED Code(s): 09663040 Plan: Will transfuse 1 unit of packed red blood cells after discussion and consent from patient. Will monitor neurologic symptoms. If no improvement after blood transfusion, will consult neurology. We'll work with breast-feeding trial consultant today for help with baby feeding.
[2023-09-19] MEDS: ACETAMINOPHEN TAB 325 MG TAB PO PRN ×2 (09:14→17:09)
[2023-09-19 09:51] LABS: Lymphocytes # (M) 1.92 k/uL (1.0-4.8); Monocytes # (M) 0.36 k/uL (0-1.0); Neutrophils # (M) 9.72 k/uL (1.3-7.7); Neutrophils % (M) 81 %; Nucleated Red Blood Cells 0 /100 WBC (0-0); Total Cells Counted 100
[2023-09-20] MEDS: ACETAMINOPHEN TAB 325 MG TAB PO PRN (00:01)
[2023-09-20 07:05] LABS: Anisocytosis Slight; HCT 27.9 % (34.0-46.0); Hypochromasia Marked; MCH 23.2 pg (25.0-35.0); MCHC 31.5 g/dL (31.0-37.0); MCV 73.9 fL (80.0-100.0); Mean Platelet Volume 8.9; Microcytosis Moderate; Platelet Count 181 k/uL (150-450); Poikilocytosis Moderate; RBC 3.77 m/uL (3.80-5.40); RDW 18.2 % (11.5-15.5); WBC 12.3 k/uL (4.0-11.0)
[2023-09-20 07:32] LABS: HGB 8.8 gm/dL (11.4-16.0)
[2023-09-20] MEDS: IBUPROFEN 600 MG TAB PO PRN (07:56)
[2023-09-20] MEDS: SENNOSIDES-DOCUSATE SODIUM 1 EACH TAB PO SCH (07:56)
[2023-09-20 08:09] LABS: Eosinophils # (M) 0.12 k/uL (0-0.7); Lymphocytes # (M) 1.97 k/uL (1.0-4.8); Monocytes # (M) 0.62 k/uL (0-1.0); Neutrophils # (M) 9.59 k/uL (1.3-7.7); Neutrophils % (M) 78 %; Nucleated Red Blood Cells 0 /100 WBC (0-0); Total Cells Counted 100
[2023-09-20 08:10] LABS: Polychromasia Present
[2023-09-20 08:26] VITALS: BP 106/69; PULSE 71; RESP 15; TEMP 97.8
--- NOTE | 2023-09-20 09:07 | P.DS ---
Providers Date of admission: 09/18/23 05:45 Expected date of discharge: 09/20/23 Attending physician: Valorie Cervantes Primary care physician: Stated None - Discharge Diagnosis(es) (1) 40 weeks gestation of Current Visit: No Status: Acute Hospital Course: This is a 18-year-old female 1 para 0 at 40 and one sevenths weeks who presented for induction of labor. She underwent oxytocin induction of labor and delivered viable female on 09/18/2023 with scores of 8 at 1 minute and 9 at 5 minutes and weight of 8 pounds 1.1 ounces. Her course was complicated by dizziness, shortness of breath and nausea. Her hemoglobin did drop to 7.1 from 9.3. She was symptomatic and therefore was counseled regarding blood transfusion. She did receive 1 unit of packed red blood cells. By day #2. She was feeling much better. On day #1 she was feeling some neurologic symptoms also with complaints of numbness on the left side of her body however she had normal motor control of the side of her body and was able to speak without difficulty. This did resolve after blood transfusion. She still complains of some migraine headaches but states this is normal for her. She would like to go home today. She is breast-feeding. Lochia is decreasing. Her pain is fairly well controlled with the ibuprofen and Tylenol. Vital signs are stable. Abdomen is soft with fundus firm and nontender. Extremity show negative Homans. Impression is status post vaginal delivery day #2. Plan is to discharge home today. Routine instructions are given. She is advised to follow up in the office in 6 weeks for a check. She is advised to call the office if she has any further questions or concerns prior to her appointment time. She is encouraged to continue taking her vitamins and take iron supplements. Procedures: Oxytocin induction of labor Spontaneous vaginal delivery of a viable female infant on 09/18/2023 Patient Condition at Discharge: Stable Plan - Discharge Summary Discharge Rx Participant: Yes New Discharge Prescriptions: New Ibuprofen [Motrin] 600 mg PO Q6HR PRN #60 tab PRN Reason: Mild Pain (Scale 1 To 3) No Action diphenhydrAMINE HCL [Benadryl Allergy] 25 mg PO DIRECTED PRN PRN Reason: Headache Discharge Medication List diphenhydrAMINE HCL [Benadryl Allergy] 25 mg PO DIRECTED PRN 08/21/23 [History] Ibuprofen [Motrin] 600 mg PO Q6HR PRN #60 tab 09/20/23 [Rx] Follow up Appointment(s)/Referral(s): Valorie Cervantes DO [Doctor of Osteopathic Medicine] - 6 Weeks (PP 10/31/2023 @11:30) Activity/Diet/Wound Care/Special Instructions: Instructions 1. Do not begin any exercise program for 3 weeks. 2. Do not resume sexual relations for 3 weeks or longer if uncomfortable. 3. You may take tub baths or showers at any time. 4. You may use tampons if desired after 3 weeks. 5. Keep the area of episiotomy (stitches) clean and dry. 6. If you are not nursing, wear a good fitting, supportive bra during the day and limit fluid intake for at least 1 week to prevent breast engorgement. 7. Call the office, [phone], within the next week to make appointment for your 6 week checkup if it has not already been made. 8. Report any of the following occurrences to the doctor promptly: a. Heavy, excessive bleeding b. Chills, fever c. Burning or frequency of urination d. Pain or redness and breasts if nursing e. Increasing pain or swelling in episiotomy (stitches). In addition to the above instructions, the following additional should be followed: 1. No heavy lifting or straining (exercising) until after 6 week checkup. 2. Keep abdominal incision clean and dry: You may wear a dressing if more comfortable. 3. Make office appointment for 10 days after going home or as instructed by her doctor. Discharge Disposition: HOME SELF-CARE
== END 2023-09-20 12:20 | disposition home or self-care (01) | DRG 806 ==
LOC: 4FBP 05:45
PROVIDERS: ADMIT Obstetrics & Gynecology; ATTEND Obstetrics & Gynecology
PROC: 3E033VJ Introduction of Other Hormone into Peripheral Vein, Percutaneous Approach (ICD-10-PCS; principal; 2023-09-18)
PROC: 0KQM0ZZ Repair Perineum Muscle, Open Approach (ICD-10-PCS; principal; 2023-09-18)
PROC: 10E0XZZ Delivery of Products of Conception, External Approach (ICD-10-PCS; principal; 2023-09-18)
PROC: 10907ZC Drainage of Amniotic Fluid, Therapeutic from Products of Conception, Via Natural or Artificial Opening (ICD-10-PCS; principal; 2023-09-18)
PROC: 30233N1 Transfusion of Nonautologous Red Blood Cells into Peripheral Vein, Percutaneous Approach (ICD-10-PCS; 2023-09-19)
DX: O99.354 Diseases of the nervous system complicating childbirth (principal); D62 Acute posthemorrhagic anemia; O48.0 Post-term pregnancy; G90.A Postural orthostatic tachycardia syndrome [POTS]; G43.909 Migraine, unspecified, not intractable, without status migrainosus; O70.1 Second degree perineal laceration during delivery; O99.344 Other mental disorders complicating childbirth; O99.02 Anemia complicating childbirth; F32.A Depression, unspecified; F41.9 Anxiety disorder, unspecified; O77.0 Labor and delivery complicated by meconium in amniotic fluid; Z88.8 Allergy status to other drugs, medicaments and biological substances; Z3A.40 40 weeks gestation of pregnancy; Z37.0 Single live birth
CPT/HCPCS: 85025; 86850; 86900; 86901; 86920

== ENCOUNTER 2023-10-05 22:51 | Emergency (ER) | payer OTHER ==
[2023-10-05] MEDS ORDERED: SODIUM CHLORIDE 0.9% 1,000 ML IV STA ×2 (23:12)
[2023-10-05] MEDS ORDERED: IBUPROFEN 600 MG TAB PO STA (23:12)
[2023-10-05] MEDS ORDERED: ACETAMINOPHEN TAB 500 MG TAB PO STA (23:12)
[2023-10-05] MEDS ORDERED: SODIUM CHLORIDE 0.9% 500 ML 500 ML IV STA (23:12)
--- NOTE | 2023-10-05 23:21 | ED ---
Fever HPI <Solo Maki - Last Filed: 10/15/23 07:30> - General Source: patient, RN notes reviewed, old records reviewed Mode of arrival: ambulatory Limitations: no limitations - History of Present Illness MD Complaint: fever, malaise, weakness, other (Abdominal pain with near syncopal event) -: hour(s) Temperature Source: subjective Context: recent procedure (Recent vaginal delivery) Associated Symptoms: chills, rigors Treatments Prior to Arrival: none <Israel Ang - Last Filed: 10/15/23 16:31> - General Chief Complaint: Fever Stated Complaint: 2 weeks post op baby, ABD pain, Fever Time Seen by Provider: 10/05/23 23:12 - History of Present Illness Initial Comments: This is a 18-year-old female to the emergency department for evaluation. Patient presents today for evaluation to fever and abdominal pain. Near syncopal event earlier in the day. Patient recently is a vaginal delivery, 2 weeks also complaining of some breast pain. OCcadionsal some abdominal pain. (Israel Ang) - Related Data Home Medications Medication Instructions Recorded Confirmed diphenhydrAMINE HCL [Benadryl 25 mg PO DIRECTED PRN 08/21/23 09/18/23 Allergy] Previous Rx's Medication Instructions Recorded Ibuprofen [Motrin] 600 mg PO Q6HR PRN #60 tab 09/20/23 Dicloxacillin [Dynapen] 500 mg PO Q6H 10 Days #40 capsule 10/06/23 Allergies Allergy/AdvReac Type Severity Reaction Status Date / Time pseudoephedrine Allergy Rapid Verified 10/05/23 23:01 Heart Rate Review of Systems ROS Other: All systems not noted in ROS Statement are negative. <Solo Maki - Last Filed: 10/15/23 07:30> ROS Other: All systems not noted in ROS Statement are negative. <Israel Ang - Last Filed: 10/15/23 16:31> ROS Statement: Those systems with pertinent positive or pertinent negative responses have been documented in the HPI. Past Medical History Past Medical History: No Reported History Additional Past Medical History / Comment(s): Chronic ear infections, hypotension, POTS History of Any Multi-Drug Resistant Organisms: None Reported Past Surgical History: Adenoidectomy, Tonsillectomy Additional Past Surgical History / Comment(s): several ear surgeries Past Anesthesia/Blood Transfusion Reactions: No Reported Reaction Past Psychological History: Anxiety, Depression Smoking Status: Never smoker Past Alcohol Use History: None Reported Past Drug Use History: None Reported - Past Family History Mother Family Medical History: Hypertension Additional Family Medical History / Comment(s): Mother - hypertension <Israel Ang - Last Filed: 10/15/23 16:31> General Exam Limitations: no limitations General appearance: alert, in no apparent distress Head exam: Present: atraumatic, normocephalic, normal inspection Eye exam: Present: normal appearance, PERRL, EOMI. Absent: scleral icterus, conjunctival injection, periorbital swelling ENT exam: Present: normal exam, mucous membranes moist Neck exam: Present: normal inspection. Absent: tenderness, meningismus, lymphadenopathy Respiratory exam: Present: normal lung sounds bilaterally. Absent: respiratory distress, wheezes, rales, rhonchi, stridor Cardiovascular Exam: Present: regular rate, normal rhythm, normal heart sounds. Absent: systolic murmur, diastolic murmur, rubs, gallop, clicks GI/Abdominal exam: Present: soft, normal bowel sounds. Absent: distended, tenderness, guarding, rebound, rigid Extremities exam: Present: normal inspection, full ROM, normal capillary refill. Absent: tenderness, pedal edema, joint swelling, calf tenderness Back exam: Present: normal inspection Neurological exam: Present: alert, oriented X3, CN II-XII intact Psychiatric exam: Present: normal affect, normal mood Skin exam: Present: warm, dry, intact, normal color. Absent: rash <Israel Ang - Last Filed: 10/15/23 16:31> Course <Solo Maki N - Last Filed: 10/15/23 07:30> <Israel Ang - Last Filed: 10/15/23 16:31> Vital Signs 10/05/23 10/05/23 10/06/23 22:57 23:54 02:29 Temperature 99.2 F Pulse Rate 108 H 93 84 Respiratory 20 22 18 Rate Blood Pressure 81/50 121/65 103/57 O2 Sat by Pulse 98 97 96 Oximetry 10/06/23 10/06/23 10/06/23 05:36 06:54 07:01 Temperature 100.2 F H Pulse Rate 60 83 86 Respiratory 16 18 18 Rate Blood Pressure 111/91 130/66 114/61 O2 Sat by Pulse 96 97 98 Oximetry 10/06/23 10:32 Temperature 99.2 F Pulse Rate 86 Respiratory 18 Rate Blood Pressure 132/87 O2 Sat by Pulse 98 Oximetry - Reevaluation(s) Reevaluation #1: 10/06/23 02:43 Medical records reviewed (Israel Ang) Reevaluation #2: patients symptoms are improved with no recurrent syncopal event (Israel Ang) Reevaluation #3: patient is informed results and questions answered (Israel Ang) Reevaluation #4: 10/05/23 23:59 Was pt. sent in by a medical professional or institution ([facility], [facility], urgent care, hospital, or [facility]...) When possible be specific @ -no Did you speak to anyone other than the patient for history (EMS, parent, family, police, friend...)? What history was obtained from this source @ -no Did you review nursing and triage notes (agree or disagree)? Why? @ -agree Are old charts reviewed (outside hosp., previous admission, EMS record, old EKG, old radiological studies, urgent care reports/EKG's, [facility] records)? Report findings @ -yes Differential Diagnosis (chest pain, altered mental status, abdominal pain women, abdominal pain men, vaginal bleeding, weakness, fever, dyspnea, syncope, headache, dizziness, GI bleed, back pain, seizure, CVA, palpatations, mental health, musculoskeletal)? @ -prior EKG interpreted by me (3pts min.). @ -yes X-rays interpreted by me (1pt min.). @ -yes negative for acute disease CT interpreted by me (1pt min.). @ -Is negative for acute disease U/S interpreted by me (1pt. min.). @ -yes positive for possible retained products of conception What testing was considered but not performed or refused? (CT, X-rays, U/S, labs)? Why? @ -none What meds were considered but not given or refused? Why? @ -none Did you discuss the management of the patient with other professionals (professionals i.e. , PA, [facility], lab, RT, psych nurse, social media marketing specialist, machine applicator cementer, teacher, low altitude air defense officer, home health care case manager)? Give summary @ -no Was smoking cessation discussed for >3mins.? @ -no Was critical care preformed (if so, how long)? @ -no Were there social determinants of health that impacted care today? How? (Homelessness, low income, unemployed, alcoholism, drug addiction, transportation, low edu. Level, literacy, decrease access to med. care, [facility], rehab)? @ -none Was there de-escalation of care discussed even if they declined (Discuss DNR or withdrawal of care, Hospice)? DNR status @ -no What co-morbidities impacted this encounter? (DM, HTN, Smoking, COPD, CAD, Cancer, CVA, ARF, Chemo, Hep., AIDS, mental health diagnosis, sleep apnea, morbid obesity)? @ -none Was patient admitted / discharged? Hospital course, mention meds given and route, prescriptions, significant lab abnormalities, going to OR and other pertinent info. @ - 18 Female to the emergency department for evaluation of fever recent vaginal delivery and a syncopal event. No recurrent syncope here in the ER patient feels well fever undiagnosed mastitis mild urinary tract infection. Patient was placed on antibiotics and can be discharged home Discharged Undiagnosed new problem with uncertain prognosis? @ -no Drug Therapy requiring intensive monitoring for toxicity (Heparin, Nitro, Insulin, Cardizem)? @ -no Were any procedures done? @ -no Diagnosis/symptom? @ - Acute, or Chronic, or Acute on Chronic? @ -Acute Uncomplicated (without systemic symptoms) or Complicated (systemic symptoms)? @ -Complicated Side effects of treatment? @ -no Exacerbation, Progression, or Severe Exacerbation? @ -exacerbation Poses a threat to life or bodily function? How? (Chest pain, USA, LA, pneumonia, PE, COPD, DKA, ARF, appy, cholecystitis, CVA, Diverticulitis, Homicidal, Suicidal, threat to staff... and all critical care pts) @ -yes with syncopal event (Israel Ang) Reevaluation #5: 10/06/23 0700 Patient evaluated after sign out. Chief complaint is left-sided breast pain. There is some tenderness and induration in the lateral left breast. I suspect mastoiditis. Patient had some minimal abdominal discomfort which was left upper quadrant. There is no lower pelvic discomfort. No foul-smelling vaginal discharge. Patient reports a very small amount of brown discharge. Laboratory testing reveals mild leukocytosis. Normal lactic. CT imaging was performed which was negative for acute findings. I do feel patient is stable for discharge with oral antibiotics for mastitis and close obstetric follow-up. Return parameters discussed (Solo Maki) 10/05/23 23:59 Differential Fever: Pneumonia, viral URI, endocarditis, myocarditis, pericarditis, otitis, sinusitis, peritonsillar Abscess, retropharyngeal Abscess, epiglottitis, peritonitis, appendicitis, Hortensia cystitis, diverticulitis, hepatitis, colitis, UTI, PID, TOA, pyelonephritis, prostatitis, epididymitis, meningitis, encephalitis, pulmonary embolism, CVA, thyroid storm, pancreatitis, adrenal crisis, cavernous sinus thrombosis, this is not meant to be an all-inclusive list. (Israel Ang) Medical Decision Making - Lab Data Result diagrams: 10/05/23 23:38 10/05/23 23:38 <Solo Maki - Last Filed: 10/15/23 07:30> - Lab Data Result diagrams: 10/05/23 23:38 10/05/23 23:38 - EKG Data -: EKG Interpreted by Me (EKG is sinus 88 NC 150 QRS 87 QTC 391) - Radiology Data Radiology results: report reviewed (CT head and pelvis and chest x-rays negative for acute disease ultrasound possible retained products of conception), image reviewed <Israel Ang - Last Filed: 10/15/23 16:31> - Medical Decision Making 18-year-old female to the emergency department for evaluation of fever today. Patient also has syncopal event prior to arrival. Occasional abdominal pain recent vaginal delivery. Patient feels well throughout ER stay can antibiotics (Israel Ang) - Lab Data Lab Results 10/05/23 10/05/23 10/05/23 Range/Units 23:38 23:38 23:38 WBC 12.3 H (4.0-11.0) k/uL RBC 4.55 (3.80-5.40) m/uL Hgb 10.6 L (11.4-16.0) gm/dL Hct 33.1 L (34.0-46.0) % MCV 72.8 L (80.0-100.0) fL MCH 23.4 L (25.0-35.0) pg MCHC 32.1 (31.0-37.0) g/dL RDW 17.7 H (11.5-15.5) % Plt Count 213 (150-450) k/uL MPV 8.2 Neutrophils % (Manual) 86 % Band Neuts % (Manual) 5 % Lymphocytes % (Manual) 5 % Monocytes % (Manual) 3 % Eosinophils % (Manual) 1 % Neutrophils # (Manual) 11.10 H (1.3-7.7) k/uL Lymphocytes # (Manual) 0.62 L (1.0-4.8) k/uL Monocytes # (Manual) 0.37 (0-1.0) k/uL Eosinophils # (Manual) 0.12 (0-0.7) k/uL Nucleated RBCs 0 (0-0) /100 WBC Manual Slide Review Performed Hypochromasia Marked Poikilocytosis Slight Anisocytosis Slight Microcytosis Moderate PT 11.7 (10.0-12.5) sec INR 1.1 (<1.2) APTT 26.1 (22.0-30.0) sec Sodium 133 L (137-145) mmol/L Potassium 5.3 H (3.5-5.1) mmol/L Chloride 107 (98-107) mmol/L Carbon Dioxide 16 L (22-30) mmol/L Anion Gap 10 mmol/L BUN 9 (7-17) mg/dL Creatinine 0.73 (0.52-1.04) mg/dL Est GFR (CKD-EPI)AfAm >90 (>60 ml/min/1.73 sqM) Est GFR (CKD-EPI)NonAf >90 (>60 ml/min/1.73 sqM) Glucose 93 (74-99) mg/dL Plasma Lactic Acid Freedom (0.7-2.0) mmol/L Calcium 8.6 (8.4-10.2) mg/dL Phosphorus 2.7 (2.5-4.5) mg/dL Magnesium 1.9 (1.6-2.3) mg/dL Total Bilirubin 1.2 (0.2-1.3) mg/dL AST 50 H (14-36) U/L ALT 18 (4-34) U/L Alkaline Phosphatase 85 (38-126) U/L Troponin I (0.000-0.034) ng/mL NT-Pro-B Natriuret Pep 102 pg/mL Total Protein 6.8 (6.3-8.2) g/dL Albumin 3.7 (3.5-5.0) g/dL TSH 0.209 L (0.465-4.680) mIU/L Urine Color Urine Appearance (Clear) Urine pH (5.0-8.0) Ur Specific Kendall (1.001-1.035) Urine Protein (Negative) Urine Glucose (UA) (Negative) Urine Ketones (Negative) Urine Blood (Negative) Urine Nitrite (Negative) Urine Bilirubin (Negative) Urine Urobilinogen (<2.0) mg/dL Ur Leukocyte Esterase (Negative) Urine RBC (0-5) /hpf Urine WBC (0-5) /hpf Ur Squamous Epith Cells (0-4) /hpf Urine Bacteria (None) /hpf Urine Mucus (None) /hpf Influenza Type A (PCR) (Not Detectd) Influenza Type B (PCR) (Not Detectd) RSV (PCR) (Not Detectd) SARS-CoV-2 (PCR) (Not Detectd) 10/05/23 10/05/23 10/05/23 Range/Units 23:38 23:38 23:38 WBC (4.0-11.0) k/uL RBC (3.80-5.40) m/uL Hgb (11.4-16.0) gm/dL Hct (34.0-46.0) % MCV (80.0-100.0) fL MCH (25.0-35.0) pg MCHC (31.0-37.0) g/dL RDW (11.5-15.5) % Plt Count (150-450) k/uL MPV Neutrophils % (Manual) % Band Neuts % (Manual) % Lymphocytes % (Manual) % Monocytes % (Manual) % Eosinophils % (Manual) % Neutrophils # (Manual) (1.3-7.7) k/uL Lymphocytes # (Manual) (1.0-4.8) k/uL Monocytes # (Manual) (0-1.0) k/uL Eosinophils # (Manual) (0-0.7) k/uL Nucleated RBCs (0-0) /100 WBC Manual Slide Review Hypochromasia Poikilocytosis Anisocytosis Microcytosis PT (10.0-12.5) sec INR (<1.2) APTT (22.0-30.0) sec Sodium (137-145) mmol/L Potassium (3.5-5.1) mmol/L Chloride (98-107) mmol/L Carbon Dioxide (22-30) mmol/L Anion Gap mmol/L BUN (7-17) mg/dL Creatinine (0.52-1.04) mg/dL Est GFR (CKD-EPI)AfAm (>60 ml/min/1.73 sqM) Est GFR (CKD-EPI)NonAf (>60 ml/min/1.73 sqM) Glucose (74-99) mg/dL Plasma Lactic Acid Freedom 1.1 (0.7-2.0) mmol/L Calcium (8.4-10.2) mg/dL Phosphorus (2.5-4.5) mg/dL Magnesium (1.6-2.3) mg/dL Total Bilirubin (0.2-1.3) mg/dL AST (14-36) U/L ALT (4-34) U/L Alkaline Phosphatase (38-126) U/L Troponin I <0.012 (0.000-0.034) ng/mL NT-Pro-B Natriuret Pep pg/mL Total Protein (6.3-8.2) g/dL Albumin (3.5-5.0) g/dL TSH (0.465-4.680) mIU/L Urine Color Urine Appearance (Clear) Urine pH (5.0-8.0) Ur Specific Kendall (1.001-1.035) Urine Protein (Negative) Urine Glucose (UA) (Negative) Urine Ketones (Negative) Urine Blood (Negative) Urine Nitrite (Negative) Urine Bilirubin (Negative) Urine Urobilinogen (<2.0) mg/dL Ur Leukocyte Esterase (Negative) Urine RBC (0-5) /hpf Urine WBC (0-5) /hpf Ur Squamous Epith Cells (0-4) /hpf Urine Bacteria (None) /hpf Urine Mucus (None) /hpf Influenza Type A (PCR) Not Detected (Not Detectd) Influenza Type B (PCR) Not Detected (Not Detectd) RSV (PCR) Not Detected (Not Detectd) SARS-CoV-2 (PCR) Not Detected (Not Detectd) 10/06/23 Range/Units 02:24 WBC (4.0-11.0) k/uL RBC (3.80-5.40) m/uL Hgb (11.4-16.0) gm/dL Hct (34.0-46.0) % MCV (80.0-100.0) fL MCH (25.0-35.0) pg MCHC (31.0-37.0) g/dL RDW (11.5-15.5) % Plt Count (150-450) k/uL MPV Neutrophils % (Manual) % Band Neuts % (Manual) % Lymphocytes % (Manual) % Monocytes % (Manual) % Eosinophils % (Manual) % Neutrophils # (Manual) (1.3-7.7) k/uL Lymphocytes # (Manual) (1.0-4.8) k/uL Monocytes # (Manual) (0-1.0) k/uL Eosinophils # (Manual) (0-0.7) k/uL Nucleated RBCs (0-0) /100 WBC Manual Slide Review Hypochromasia Poikilocytosis Anisocytosis Microcytosis PT (10.0-12.5) sec INR (<1.2) APTT (22.0-30.0) sec Sodium (137-145) mmol/L Potassium (3.5-5.1) mmol/L Chloride (98-107) mmol/L Carbon Dioxide (22-30) mmol/L Anion Gap mmol/L BUN (7-17) mg/dL Creatinine (0.52-1.04) mg/dL Est GFR (CKD-EPI)AfAm (>60 ml/min/1.73 sqM) Est GFR (CKD-EPI)NonAf (>60 ml/min/1.73 sqM) Glucose (74-99) mg/dL Plasma Lactic Acid Freedom (0.7-2.0) mmol/L Calcium (8.4-10.2) mg/dL Phosphorus (2.5-4.5) mg/dL Magnesium (1.6-2.3) mg/dL Total Bilirubin (0.2-1.3) mg/dL AST (14-36) U/L ALT (4-34) U/L Alkaline Phosphatase (38-126) U/L Troponin I (0.000-0.034) ng/mL NT-Pro-B Natriuret Pep pg/mL Total Protein (6.3-8.2) g/dL Albumin (3.5-5.0) g/dL TSH (0.465-4.680) mIU/L Urine Color Colorless Urine Appearance Clear (Clear) Urine pH 6.5 (5.0-8.0) Ur Specific Kendall 1.012 (1.001-1.035) Urine Protein Negative (Negative) Urine Glucose (UA) Negative (Negative) Urine Ketones Negative (Negative) Urine Blood Moderate H (Negative) Urine Nitrite Negative (Negative) Urine Bilirubin Negative (Negative) Urine Urobilinogen <2.0 (<2.0) mg/dL Ur Leukocyte Esterase Large H (Negative) Urine RBC 3 (0-5) /hpf Urine WBC 28 H (0-5) /hpf Ur Squamous Epith Cells <1 (0-4) /hpf Urine Bacteria Rare H (None) /hpf Urine Mucus Rare H (None) /hpf Influenza Type A (PCR) (Not Detectd) Influenza Type B (PCR) (Not Detectd) RSV (PCR) (Not Detectd) SARS-CoV-2 (PCR) (Not Detectd) Disposition Is patient prescribed a controlled substance at d/c from ED?: No Time of Disposition: 08:26 <Solo Maki N - Last Filed: 10/15/23 07:30> Is patient prescribed a controlled substance at d/c from ED?: No <Israel Ang - Last Filed: 10/15/23 16:31> Clinical Impression: Mastitis, Fever Disposition: HOME SELF-CARE Condition: Good Instructions (If sedation given, give patient instructions): Mastitis (ED), Fe tashi in Adults (ED) Prescriptions: Dicloxacillin [Dynapen] 500 mg PO Q6H 10 Days #40 capsule Referrals: Dmitri Verma DO [Primary Care Provider] - 1-2 days
[2023-10-06 00:35] LABS: ALT 18 U/L (4-34); AST 50 U/L (14-36); African American GFR (CKD) >90 (>60 ml/min/1.73 sqM); Albumin 3.7 g/dL (3.5-5.0); Alkaline Phosphatase 85 U/L (38-126); Anion Gap 10 mmol/L; Blood Urea Nitrogen 9 mg/dL (7-17); Calcium 8.6 mg/dL (8.4-10.2); Carbon Dioxide 16 mmol/L (22-30); Chloride 107 mmol/L (98-107); Glucose 93 mg/dL (74-99); Magnesium 1.9 mg/dL (1.6-2.3); Non-African American GFR(CKD) >90 (>60 ml/min/1.73 sqM); Phosphorus 2.7 mg/dL (2.5-4.5); Sodium 133 mmol/L (137-145); Total Bilirubin 1.2 mg/dL (0.2-1.3); Total Protein 6.8 g/dL (6.3-8.2)
[2023-10-06 00:36] LABS: Anisocytosis Slight; HCT 33.1 % (34.0-46.0); HGB 10.6 gm/dL (11.4-16.0); Hypochromasia Marked; MCH 23.4 pg (25.0-35.0); MCHC 32.1 g/dL (31.0-37.0); MCV 72.8 fL (80.0-100.0); Mean Platelet Volume 8.2; Microcytosis Moderate; Platelet Count 213 k/uL (150-450); Poikilocytosis Slight; RBC 4.55 m/uL (3.80-5.40); RDW 17.7 % (11.5-15.5); WBC 12.3 k/uL (4.0-11.0)
[2023-10-06 00:41] LABS: Potassium 5.3 mmol/L (3.5-5.1)
[2023-10-06 00:44] LABS: NT-Pro-B-Type Natriuretic Pept 102 pg/mL
[2023-10-06 00:48] LABS: INR 1.1 (<1.2); Partial Thromboplastin Time 26.1 sec (22.0-30.0); Prothrombin Time 11.7 sec (10.0-12.5)
--- NOTE | 2023-10-06 01:29 | XR ---
EXAM: XR Chest, 2 Views CLINICAL HISTORY: ITS.REASON XR Reason: Weakness TECHNIQUE: Frontal and lateral views of the chest. COMPARISON: No relevant prior studies available. FINDINGS: Lungs: No consolidation or mass. Pleural space: No effusion. Heart: Mild cardiomegaly. Bones/joints: No acute findings. IMPRESSION: No acute cardiopulmonary process.
[2023-10-06] MEDS ORDERED: SODIUM CHLORIDE 0.9% 1,000 ML IV STA (01:55)
[2023-10-06 03:28] LABS: Appearance,Urine Clear (Clear); Bacteria,Urine Rare /hpf; Bilirubin,Urine Negative (Negative); Blood,Urine Moderate (Negative); Color,Urine Colorless; Glucose,Urine (UA) Negative (Negative); Ketones,Urine Negative (Negative); Leukocyte Esterase,Urine Large (Negative); Mucus,Urine Rare /hpf; Nitrite,Urine Negative (Negative); PH, Urine 6.5 (5.0-8.0); Protein,Urine Negative (Negative); RBC,Urine 3 /hpf (0-5); Specific Gravity,Urine 1.012 (1.001-1.035); Squamous Epithelial Cell,Urine <1 /hpf (0-4); Urobilinogen,Urine <2.0 mg/dL (<2.0); WBC,Urine 28 /hpf (0-5)
[2023-10-06 04:11] LABS: Band Neutrophils % 5 %; Eosinophils # (M) 0.12 k/uL (0-0.7); Lymphocytes # (M) 0.62 k/uL (1.0-4.8); Monocytes # (M) 0.37 k/uL (0-1.0); Neutrophils % (M) 86 %; Nucleated Red Blood Cells 0 /100 WBC (0-0); Total Cells Counted 100
[2023-10-06 07:03] VITALS: RESP 18
[2023-10-06] MEDS ORDERED: ACETAMINOPHEN TAB 500 MG TAB PO STA (07:32)
[2023-10-06 08:15] VITALS: PULSE 86
--- NOTE | 2023-10-06 08:20 | CT ---
Roxana Breaux EXAMINATION TYPE: CT abdomen pelvis w con DATE OF EXAM: 10/06/2023 HISTORY: 2 weeks with fever and abdominal pain and lower back pain CT DLP: 1621mGycm Automated Exposure Control for Dose Reduction was Utilized. CONTRAST: CT scan of the abdomen and pelvis is performed without oral and with IV Contrast, patient injected wi th 100 mL of Isovue 300. COMPARISON: None FINDINGS: LUNG BASES: No significant abnormality is appreciated. LIVER/GB: No significant abnormality is appreciated. PANCREAS: No significant abnormality is seen. SPLEEN: No significant abnormality is seen. ADRENALS: No significant abnormality is seen. KIDNEYS: No significant abnormality is seen. BOWEL: No suspicious small or large bowel dilatation. Appendix within normal limits ascending from b ase of cecum coronal image 43 UTERUS/ADNEXA: Anteverted uterus. No free fluid. LYMPH NODES: No greater than 1cm abdominal or pelvic lymph nodes are appreciated. OSSEOUS STRUCTURES: No significant abnormality is seen. OTHER: No significant additional abnormality is seen. IMPRESSION: No significant acute finding is seen to account for patient's clinical symptoms.
--- NOTE | 2023-10-06 09:00 | US ---
EXAMINATION TYPE: US pelvic complete DATE OF EXAM: 10/06/2023 COMPARISON: CT 08/06/2024 CLINICAL INDICATION: Female, 18 years old with history of pain; Fever; Post vaginal delivery x 2 weeks; Post bleeding has been resolving TECHNIQUE: Transabdominal sonographic images of the pelvis were acquired. Transvaginal sonographic i mages were not done due to recent vaginal delivery and were not medically necessary. Date of LMP: Unknown EXAM MEASUREMENTS: Uterus: 15.1 x 4.4 x 10.3 cm Endometrial Stripe: 0.6 cm Right Ovary: 4.4 x 2.5 x 2.2 cm Left Ovary: 4.7 x 2.5 x 3.4 cm 1. Uterus: Anteverted wnl 2. Endometrium: Debris seen within endo; ? retained products of conception 3. Right Ovary: wnl 4. Left Ovary: wnl 5. Bilateral Adnexa: wnl 6. Posterior cul-de-sac: wnl IMPRESSION: Debris within the endometrium correlate for retained products of conception.
[2023-10-06 10:43] VITALS: BP 132/87; TEMP 99.2
== END 2023-10-06 10:00 | disposition home or self-care (01) ==
LOC: EC 22:51
DX: O91.22 Nonpurulent mastitis associated with the puerperium (principal); O90.89 Other complications of the puerperium, not elsewhere classified; R10.12 Left upper quadrant pain; Z20.822 Contact with and (suspected) exposure to COVID-19; Z88.8 Allergy status to other drugs, medicaments and biological substances
CPT/HCPCS: 99285; 96365; 96366; 96361 ×2; 36415; 93005; 83880; 80053; 83605; 83735; 84100; 84443; 84484; 85025; 85610; 85730; 81001; 87040; 87636; 71046; 76856; 74177; J0696; Q9967

== ENCOUNTER 2024-04-11 15:10 | Emergency (ER) | payer OTHER ==
[2024-04-11 15:27] VITALS: TEMP 98.8
[2024-04-11 17:41] LABS: Anisocytosis Slight; HGB 11.4 gm/dL (11.4-16.0); Hypochromasia Slight; MCHC 30.7 g/dL (31.0-37.0); MCV 78.3 fL (80.0-100.0); Mean Platelet Volume 7.8; Microcytosis Slight; Platelet Count 279 k/uL (150-450); RBC 4.72 m/uL (3.80-5.40); RDW 16.8 % (11.5-15.5); WBC 7.6 k/uL (4.0-11.0)
[2024-04-11 17:51] LABS: African American GFR (CKD) >90 (>60 ml/min/1.73 sqM); Anion Gap 8 mmol/L; Blood Urea Nitrogen 8 mg/dL (7-17); Calcium 9.3 mg/dL (8.4-10.2); Carbon Dioxide 22 mmol/L (22-30); Chloride 109 mmol/L (98-107); Glucose 84 mg/dL (74-99); Non-African American GFR(CKD) >90 (>60 ml/min/1.73 sqM); Potassium 3.7 mmol/L (3.5-5.1); Sodium 139 mmol/L (137-145)
[2024-04-11] MEDS: TRANEXAMIC 1,000 MG/100ML-NACL 1,000 MG in SALINE 1 100ML.BAG IVPB ONE (18:04)
[2024-04-11 18:19] LABS: Appearance,Urine Clear (Clear); Bilirubin,Urine Negative (Negative); Blood,Urine Moderate (Negative); Color,Urine Colorless; Glucose,Urine (UA) Negative (Negative); Ketones,Urine Negative (Negative); Leukocyte Esterase,Urine Negative (Negative); Mucus,Urine Rare /hpf; Nitrite,Urine Negative (Negative); PH, Urine 5.5 (5.0-8.0); Protein,Urine Negative (Negative); RBC,Urine 29 /hpf (0-5); Specific Gravity,Urine 1.016 (1.001-1.035); Urobilinogen,Urine <2.0 mg/dL (<2.0); WBC,Urine 1 /hpf (0-5)
[2024-04-11 18:41] LABS: Eosinophils # (M) 0.08 k/uL (0-0.7); Lymphocytes # (M) 1.82 k/uL (1.0-4.8); Monocytes # (M) 0.46 k/uL (0-1.0); Neutrophils # (M) 5.24 k/uL (1.3-7.7); Neutrophils % (M) 69 %; Nucleated Red Blood Cells 0 /100 WBC (0-0); Total Cells Counted 100
--- NOTE | 2024-04-11 19:55 | ED ---
Female Urogenital HPI - General Chief complaint: Vaginal Bleeding Stated complaint: vaginal bleeding Time Seen by Provider: 04/11/24 16:15 Source: patient Mode of arrival: EMS Limitations: no limitations - History of Present Illness Initial comments: Patient is 18-year-old woman who presents for evaluation of pelvic cramping and vaginal bleeding that she states is similar to menstrual period though she believes she already had her normal menstrual cycle MD Complaint: vaginal bleeding, pelvic pain Onset/Timin -: days(s) Location: suprapubic, LLQ, RLQ Radiation: non-radiating Severity: moderate Quality: cramping Consistency: constant Improves with: none Worsens with: none Last Menstrual Period: 03/27/14 Patient : No Associated Symptoms: vaginal bleeding - Related Data Home Medications Medication Instructions Recorded Confirmed diphenhydrAMINE HCL [Benadryl 25 mg PO DIRECTED PRN 08/21/23 09/18/23 Allergy] Previous Rx's Medication Instructions Recorded Ibuprofen [Motrin] 600 mg PO Q6HR PRN #60 tab 09/20/23 Dicloxacillin [Dynapen] 500 mg PO Q6H 10 Days #40 capsule 10/06/23 Allergies Allergy/AdvReac Type Severity Reaction Status Date / Time pseudoephedrine Allergy Rapid Verified 04/11/24 15:27 Heart Rate Review of Systems ROS Statement: Those systems with pertinent positive or pertinent negative responses have been documented in the HPI. ROS Other: All systems not noted in ROS Statement are negative. Constitutional: Denies: fever, chills, weakness Respiratory: Denies: cough, dyspnea Cardiovascular: Denies: chest pain, palpitations, edema Gastrointestinal: Reports: abdominal pain. Denies: nausea, vomiting, diarrhea Genitourinary: Reports: abnormal menses. Denies: dysuria, hematuria, discharge Musculoskeletal: Denies: back pain Skin: Denies: rash Neurological: Denies: headache, weakness Past Medical History Past Medical History: No Reported History Additional Past Medical History / Comment(s): Chronic ear infections, hypotension, POTS History of Any Multi-Drug Resistant Organisms: None Reported Past Surgical History: Adenoidectomy, Tonsillectomy Additional Past Surgical History / Comment(s): several ear surgeries Past Anesthesia/Blood Transfusion Reactions: No Reported Reaction Past Psychological History: Anxiety, Depression Smoking Status: Never smoker Past Alcohol Use History: None Reported Past Drug Use History: None Reported - Past Family History Mother Family Medical History: Hypertension Additional Family Medical History / Comment(s): Mother - hypertension General Exam Limitations: no limitations General appearance: alert, in no apparent distress Head exam: Present: atraumatic, normocephalic Eye exam: Present: normal appearance Neck exam: Present: normal inspection Respiratory exam: Present: normal lung sounds bilaterally. Absent: respiratory distress, wheezes, rales, rhonchi, stridor Cardiovascular Exam: Present: regular rate, normal rhythm, normal heart sounds. Absent: systolic murmur, diastolic murmur, rubs, gallop GI/Abdominal exam: Present: soft. Absent: distended, tenderness, guarding, rebound, rigid, mass Extremities exam: Present: normal inspection, normal capillary refill. Absent: pedal edema, calf tenderness Back exam: Present: normal inspection. Absent: CVA tenderness (R), CVA tenderness (L) Skin exam: Present: warm, dry, intact, normal color. Absent: rash Course Vital Signs 04/11/24 04/11/24 04/11/24 15:15 18:02 20:09 Temperature 98.8 F Pulse Rate 72 72 58 L Respiratory 20 20 18 Rate Blood Pressure 132/80 114/75 120/80 O2 Sat by Pulse 98 96 100 Oximetry Medical Decision Making - Medical Decision Making Was pt. sent in by a medical professional or institution (NORMA Nevarez, CERTIFIED REGISTERED DENTAL ASSISTANT, urgent care, hospital, or care home...) When possible be specific @ -[No] Did you speak to anyone other than the patient for history (EMS, parent, family, police, friend...)? What history was obtained from this source @ -[No] Did you review nursing and triage notes (agree or disagree)? Why? @ -[I reviewed and agree with nursing and triage notes] Were old charts reviewed (outside hosp., previous admission, EMS record, old EKG, old radiological studies, urgent care reports/EKG's, care home records)? Report findings @ -[No old charts were reviewed] Differential Diagnosis (chest pain, altered mental status, abdominal pain women, abdominal pain men, vaginal bleeding, weakness, fever, dyspnea, syncope, headache, dizziness, GI bleed, back pain, seizure, CVA, palpatations, mental health, musculoskeletal)? @ -[Differential Abdominal Pain Women: Appendicitis, Cholecystitis, diverticulosis, ischemic bowel, pancreatitis, hepatitis, UTI, gastroenteritis, AAA, incarcerated hernia, bowel obstruction, constipation, inflammatory bowel, hepatitis, peptic ulcer disease, splenic infarction, perforated viscus, vulvitis, ovarian torsion, PID, kidney stone, placenta abruption, this is not meant to be an all-inclusive list EKG interpreted by me (3pts min.). @ -[As above] X-rays interpreted by me (1pt min.). @ -[None done] CT interpreted by me (1pt min.). @ -[None done] U/S interpreted by me (1pt. min.). @ -[None done] What testing was considered but not performed or refused? (CT, X-rays, U/S, labs)? Why? @ -[None] What meds were considered but not given or refused? Why? @ -[None] Did you discuss the management of the patient with other professionals (professionals i.e. , PA, CERTIFIED REGISTERED DENTAL ASSISTANT, lab, RT, psych nurse, social service coordinator, network professional, teacher, chief human resources officer, case fitter)? Give summary @ -[No] Was smoking cessation discussed for >3mins.? @ -[No] Was critical care preformed (if so, how long)? @ -[No] Were there social determinants of health that impacted care today? How? (Homel essness, low income, unemployed, alcoholism, drug addiction, transportation, low edu. Level, literacy, decrease access to med. care, usp, rehab)? @ -[No] Was there de-escalation of care discussed even if they declined (Discuss DNR or withdrawal of care, Hospice)? DNR status @ -[No] What co-morbidities impacted this encounter? (DM, HTN, Smoking, COPD, CAD, Cancer, CVA, ARF, Chemo, Hep., AIDS, mental health diagnosis, sleep apnea, morbid obesity)? @ -[None] Was patient admitted / discharged? Hospital course, mention meds given and route, prescriptions, significant lab abnormalities, going to OR and other pertinent info. @ -[hospital course] Undiagnosed new problem with uncertain prognosis? @ -[No] Drug Therapy requiring intensive monitoring for toxicity (Heparin, Nitro, Insulin, Cardizem)? @ -[No] Were any procedures done? @ -[No] Diagnosis/symptom? @ -Acute dysfunctional uterine bleeding Acute, or Chronic, or Acute on Chronic? @ -[Acute Uncomplicated (without systemic symptoms) or Complicated (systemic symptoms)? @ -[Uncomplicated Side effects of treatment? @ -[No] Exacerbation, Progression, or Severe Exacerbation? @ -[No] Poses a threat to life or bodily function? How? (Chest pain, [place], [place], pneumonia, PE, COPD, DKA, ARF, appy, cholecystitis, CVA, Diverticulitis, Homicidal, Suicidal, threat to staff... and all critical care pts) @ -[No] - Lab Data Result diagrams: 04/11/24 17:26 04/11/24 17: Lab Results 04/11/24 04/11/24 04/11/24 Range/Units 17:26 17:26 18:04 WBC 7.6 (4.0-11.0) k/uL RBC 4.72 (3.80-5.40) m/uL Hgb 11.4 (11.4-16.0) gm/dL Hct 37.0 (34.0-46.0) % MCV 78.3 L (80.0-100.0) fL MCH 24.0 L (25.0-35.0) pg MCHC 30.7 L (31.0-37.0) g/dL RDW 16.8 H (11.5-15.5) % Plt Count 279 (150-450) k/uL MPV 7.8 Neutrophils % Not Reportable Neutrophils % (Manual) 69 % Lymphocytes % Not Reportable Lymphocytes % (Manual) 24 % Monocytes % Not Reportable Monocytes % (Manual) 6 % Eosinophils % Not Reportable Eosinophils % (Manual) 1 % Basophils % Not Reportable Neutrophils # Not Reportable Neutrophils # (Manual) 5.24 (1.3-7.7) k/uL Lymphocytes # Not Reportable Lymphocytes # (Manual) 1.82 (1.0-4.8) k/uL Monocytes # Not Reportable Monocytes # (Manual) 0.46 (0-1.0) k/uL Eosinophils # Not Reportable Eosinophils # (Manual) 0.08 (0-0.7) k/uL Basophils # Not Reportable Nucleated RBCs 0 (0-0) /100 WBC Manual Slide Review Performed Hypochromasia Slight Anisocytosis Slight Microcytosis Slight Sodium 139 (137-145) mmol/L Potassium 3.7 (3.5-5.1) mmol/L Chloride 109 H (98-107) mmol/L Carbon Dioxide 22 (22-30) mmol/L Anion Gap 8 mmol/L BUN 8 (7-17) mg/dL Creatinine 0.59 (0.52-1.04) mg/dL Est GFR (CKD-EPI)AfAm >90 (>60 ml/min/1.73 sqM) Est GFR (CKD-EPI)NonAf >90 (>60 ml/min/1.73 sqM) Glucose 84 (74-99) mg/dL Calcium 9.3 (8.4-10.2) mg/dL Urine Color Colorless Urine Appearance Clear (Clear) Urine pH 5.5 (5.0-8.0) Ur Specific [place] 1.016 (1.001-1.035) Urine Protein Negative (Negative) Urine Glucose (UA) Negative (Negative) Urine Ketones Negative (Negative) Urine Blood Moderate H (Negative) Urine Nitrite Negative (Negative) Urine Bilirubin Negative (Negative) Urine Urobilinogen <2.0 (<2.0) mg/dL Ur Leukocyte Esterase Negative (Negative) Urine RBC 29 H (0-5) /hpf Urine WBC 1 (0-5) /hpf Urine Mucus Rare H (None) /hpf Urine HCG, Qual (Not Detectd) 04/11/24 Range/Units 18:04 WBC (4.0-11.0) k/uL RBC (3.80-5.40) m/uL Hgb (11.4-16.0) gm/dL Hct (34.0-46.0) % MCV (80.0-100.0) fL MCH (25.0-35.0) pg MCHC (31.0-37.0) g/dL RDW (11.5-15.5) % Plt Count (150-450) k/uL MPV Neutrophils % Neutrophils % (Manual) % Lymphocytes % Lymphocytes % (Manual) % Monocytes % Monocytes % (Manual) % Eosinophils % Eosinophils % (Manual) % Basophils % Neutrophils # Neutrophils # (Manual) (1.3-7.7) k/uL Lymphocytes # Lymphocytes # (Manual) (1.0-4.8) k/uL Monocytes # Monocytes # (Manual) (0-1.0) k/uL Eosinophils # Eosinophils # (Manual) (0-0.7) k/uL Basophils # Nucleated RBCs (0-0) /100 WBC Manual Slide Review Hypochromasia Anisocytosis Microcytosis Sodium (137-145) mmol/L Potassium (3.5-5.1) mmol/L Chloride (98-107) mmol/L Carbon Dioxide (22-30) mmol/L Anion Gap mmol/L BUN (7-17) mg/dL Creatinine (0.52-1.04) mg/dL Est GFR (CKD-EPI)AfAm (>60 ml/min/1.73 sqM) Est GFR (CKD-EPI)NonAf (>60 ml/min/1.73 sqM) Glucose (74-99) mg/dL Calcium (8.4-10.2) mg/dL Urine Color Urine Appearance (Clear) Urine pH (5.0-8.0) Ur Specific [place] (1.001-1.035) Urine Protein (Negative) Urine Glucose (UA) (Negative) Urine Ketones (Negative) Urine Blood (Negative) Urine Nitrite (Negative) Urine Bilirubin (Negative) Urine Urobilinogen (<2.0) mg/dL Ur Leukocyte Esterase (Negative) Urine RBC (0-5) /hpf Urine WBC (0-5) /hpf Urine Mucus (None) /hpf Urine HCG, Qual Not Detected (Not Detectd) Disposition Clinical Impression: Dysfunctional uterine bleeding Disposition: HOME SELF-CARE Condition: Good Instructions (If sedation given, give patient instructions): Dysmenorrhea (ED) Is patient prescribed a controlled substance at d/c from ED?: No Referrals: Dmitri Verma DO [Primary Care Provider] - 1-2 days
[2024-04-11 20:10] VITALS: BP 120/80; PULSE 58; RESP 18
== END 2024-04-11 20:13 | disposition home or self-care (01) ==
LOC: EC 15:10
DX: N93.8 Other specified abnormal uterine and vaginal bleeding (principal); Z88.8 Allergy status to other drugs, medicaments and biological substances
CPT/HCPCS: 36415; 80048; 81001; 81025; 85025; 96365; 99284